=== PATIENT | female | born 1945 | race Caucasian/White ===

== ENCOUNTER 2017-12-19 12:51 | Emergency (ER) | payer MEDICARE, BC ==
[2017-12-19 13:29] LABS: #Basophils 0.1 thou/uL (0.0-0.2); #Eosinphils 0.1 thou/uL (0.0-0.7); #Lymphocytes 0.5 thou/uL (1.20-3.40); #Monocytes 0.4 thou/uL (0.11-0.59); #Neutrophils 6.4 thou/uL (1.40-6.50); %Basophils 0.9 % (0.0-1.0); %Lymphocytes 6.2 % (21.0-51.0); %Monocytes 4.9 % (0.0-10.0); Hemoglobin 9.6 g/dL (12.0-16.0); Mean Corpuscular HGB CONC 32.3 g/dL (32.0-36.0); Mean Corpuscular Hemoglobin 30.1 pg (27.0-31.0); Mean Corpuscular Volume 93.5 fl (81.0-99.0); Mean Platelet Volume 7.2 fL (7.4-10.4); Platelet Count 213 thou/uL (130-400); RBC Distribution Width 14.3 % (11.5-14.5); Red Blood Cell (RBC) Count 3.17 mill/uL (4.20-5.40); White Blood Cell (WBC) Count 7.4 thou/uL (4.8-10.8)
[2017-12-19 13:44] LABS: ALT (SGPT) 10 U/L (8-55); AST (SGOT) 19 U/L (5-34); Alkaline Phosphatase 52 U/L (40-150); Anion Gap 14 mmol/L (10-20); BUN (Urea Nitrogen) 29 mg/dL (9.8-20.1); Bilirubin, Total 0.3 mg/dL (0.2-1.2); CK (CPK) 60 U/L (29-168); CKMB 3.2 ng/mL (0-6.6); Calc. Creatinine Clearance 0 mL/min (70-130); Calcium 8.5 mg/dL (7.8-10.44); Carbon Dioxide 22 mmol/L (23-31); Chloride 109 mmol/L (98-107); Estimated GFR-MDRD 27; Globulin 3.1 g/dL (2.4-3.5); Glucose 112 mg/dL (83-110); Lipase 15 U/L (8-78); Potassium 3.8 mmol/L (3.5-5.1); Protein, Total 6.1 g/dL (6.0-8.3); Sodium 141 mmol/L (136-145); Troponin I 0.057 ng/mL (< 0.028)
--- NOTE | 2017-12-19 14:00 | RAD ---
PORTABLE CHEST 1 VIEW: Date: 12/19/17 Time: 1353 hours HISTORY: Chest pain. FINDINGS: Comparison made with exam of 09/15/16. The heart size is mildly enlarged. No focal areas of consolidation, pneumothorax, maryan pulmonary esau ma, or pleural effusions are seen. IMPRESSION: No acute process. POS: MADINA
[2017-12-19 14:55] LABS: Bilirubin Negative (Negative); Blood, Urine Trace (Negative); Clarity Cloudy (Clear); Glucose, Urine (Dipstick) Negative (Negative); Leukocyte Large (Negative); Nitrite Positive (Negative); Protein, Urine (Dipstick) 100 mg/dL (Neg-Trace); Urobilinogen 0.2 mg/dL (0.2-1.0)
[2017-12-19 14:59] LABS: Bacteria/HPF 3+ HPF (None Seen)
[2017-12-19] MEDS ORDERED: cefTRIAXone\\ROCEPHIN 1 GM VIAL ONE (15:17)
[2017-12-19] MEDS ORDERED: Sodium Chloride 0.9% 100 ML ONE (15:21)
== END 2017-12-19 16:25 | disposition left against medical advice (07) ==
LOC: SCSER 12:51
DX: N39.0 Urinary tract infection, site not specified (principal); I95.9 Hypotension, unspecified; R79.89 Other specified abnormal findings of blood chemistry; I10 Essential (primary) hypertension; M32.9 Systemic lupus erythematosus, unspecified; Z79.52 Long term (current) use of systemic steroids; Z79.82 Long term (current) use of aspirin; Z79.899 Other long term (current) drug therapy
CPT/HCPCS: 71045; 80053; 81003; 81015; 82550; 82553; 83605; 83690; 84484; 85025; 87077; 87086; 87186; 93005; 96361; 96365; J0696; J7050

== ENCOUNTER 2017-12-21 13:42 | Inpatient (IN) | payer MEDICARE, BC ==
[2017-12-21 15:24] LABS: #Basophils 0.1 thou/uL (0.0-0.2); #Lymphocytes 0.5 thou/uL (1.20-3.40); #Monocytes 0.2 thou/uL (0.11-0.59); #Neutrophils 6.3 thou/uL (1.40-6.50); %Basophils 1.1 % (0.0-1.0); %Eosinophils 0.5 % (0.0-10.0); %Lymphocytes 6.9 % (21.0-51.0); %Monocytes 3.3 % (0.0-10.0); %Neutrophils 88.1 % (42.0-75.0); Hemoglobin 9.5 g/dL (12.0-16.0); Mean Corpuscular HGB CONC 32.3 g/dL (32.0-36.0); Mean Corpuscular Hemoglobin 30.6 pg (27.0-31.0); Mean Corpuscular Volume 94.5 fl (81.0-99.0); Platelet Count 213 thou/uL (130-400); RBC Distribution Width 14.6 % (11.5-14.5); White Blood Cell (WBC) Count 7.1 thou/uL (4.8-10.8)
[2017-12-21 15:40] LABS: ALT (SGPT) 14 U/L (8-55); AST (SGOT) 25 U/L (5-34); Albumin 3.3 g/dL (3.4-4.8); Alkaline Phosphatase 50 U/L (40-150); Anion Gap 15 mmol/L (10-20); BUN (Urea Nitrogen) 26 mg/dL (9.8-20.1); Bilirubin, Total 0.2 mg/dL (0.2-1.2); Calc. Creatinine Clearance 0 mL/min (70-130); Calcium 9.4 mg/dL (7.8-10.44); Carbon Dioxide 20 mmol/L (23-31); Chloride 111 mmol/L (98-107); Estimated GFR-MDRD 29; Globulin 3.2 g/dL (2.4-3.5); Glucose 110 mg/dL (83-110); Lipase 21 U/L (8-78); Potassium 4.9 mmol/L (3.5-5.1); Protein, Total 6.5 g/dL (6.0-8.3); Sodium 141 mmol/L (136-145)
[2017-12-21 15:41] LABS: CKMB 3.3 ng/mL (0-6.6); Troponin I 0.051 ng/mL (< 0.028)
[2017-12-21 15:45] LABS: Bilirubin Negative (Negative); Blood, Urine Trace (Negative); Glucose, Urine (Dipstick) Negative (Negative); Leukocyte Moderate (Negative); Nitrite Negative (Negative); Protein, Urine (Dipstick) Trace mg/dL (Neg-Trace); Specific Gravity, Urine 1.015 (1.005-1.030); Urobilinogen 0.2 mg/dL (0.2-1.0); pH, Urine 5.5 (5.0-9.0)
[2017-12-21 15:46] LABS: Clarity Hazy (Clear)
[2017-12-21 15:47] LABS: Bacteria/HPF 2+ HPF (None Seen); RBC/HPF 0-3 HPF (0-3); WBC/HPF 21-50 HPF (0-3)
[2017-12-21] MEDS ORDERED: cefTRIAXone\\ROCEPHIN 1 GM VIAL ONE (16:04)
[2017-12-21 17:52] VITALS: BMI 27.4
[2017-12-21] MEDS ORDERED: Sodium Chloride 0.9% 1,000 ML IV SCH (18:15)
[2017-12-21] MEDS ORDERED: Nitroglycerin 0.4 MG TAB (25 Tab Bottle) PO PRN (18:33)
[2017-12-21] MEDS ORDERED: HYDROcodone/Acetaminophen 5/325 mg Tablet PO PRN (18:33)
[2017-12-21] MEDS ORDERED: hydrALAZINE 20 MG/ML VIAL SLOW IVP PRN (18:39)
[2017-12-21 18:56] LABS: Troponin I 0.052 ng/mL (< 0.028)
[2017-12-21] MEDS: Propranolol HCl 20 MG TAB PO SCH (20:31)
[2017-12-21] MEDS: traMADol HCl 50 MG TAB PO SCH (20:32)
[2017-12-21] MEDS: Docusate 100 MG CAP PO SCH (20:32)
[2017-12-21] MEDS: Carvedilol 3.125 MG TAB PO SCH (20:32)
--- NOTE | 2017-12-21 21:20 | CT ---
CT OF BRAIN PERFORMED WITHOUT CONTRAST ENHANCEMENT: History: Slurred speech. Comparison: 10-06-14 FINDINGS: Mild ventricular and sulcal prominence. There are no signs of intercerebral hemorrhage or extraaxial fluid collections. There is opacification of the left mastoid air cells. The visualized sinuses are c lear. IMPRESSION: No acute intracranial abnormalities. POS: H
[2017-12-21 22:00] LABS: Troponin I 0.039 ng/mL (< 0.028)
--- NOTE | 2017-12-21 22:58 | HP ---
DATE OF ADMISSION: 12/21/2017 CHIEF COMPLAINT: Dizziness. HISTORY OF PRESENT ILLNESS: This is a 72-year-old white female. She happened to have a dizzy spells associated with passing out feeling. This was on Friday and she went to [place] ER, where s he was noted to have urinary tract infection and because of the passing out episode. She was advised to be admitted, but the patient left the ER against medical advice. The patient started taking the Keflex since 2 days, and she has persistent passing out episodes. According to the , and also he noticed some slurred speech, this was around 12:00 noon today and he went back to the [facility] ER and the patient was evaluated, had an EKG, which was unremarkable and troponin, which was mil dly elevated at 0.051 and the patient was advised to be admitted, but she never got any CT of the hea d at that time. Her slurred speech completely resolved according to the when she was transfe rred here. She was alert and oriented, did not appear to be in any acute distress. She denies havin g any fever, any burning on passing urine or any frequent urinations. She has known history of lupus and she is on steroids and she sees Dr. Frias. She is pretty much a lert and oriented, did not appear in any acute distress at this time. She denies having any chest pa in. No nausea, no vomiting, no diarrhea, no constipation. PAST MEDICAL HISTORY: 1. History of hypertension. 2. History of lupus. PAST SURGICAL HISTORY: 1. History of right leg surgery. 2. History of bilateral cataract surgery. PSYCHIATRIC HISTORY: No history of previous psychiatric history. SOCIAL HISTORY: The patient lives at home along with her . No history of smoking. No histor y of illicit drug use. FAMILY HISTORY: The patient's father had coronary artery disease and he at the age of 60 with C OPD according to her. ALLERGIES: No known drug allergies. HOME MEDICATIONS: 1. Aspirin. 2. Nuelin. 3. Lunesta, she takes 5 mg tablet at bedtime. The maximum dose is 2 mg. 4. Lasix 20 mg daily. 5. Losartan 50 mg p.o. daily. 6. Prednisolone 10 mg p.o. daily. 7. Propranolol 20 mg p.o. b.i.d. 8. Tramadol 50 mg p.o. b.i.d. REVIEW OF SYSTEMS: All 12 systems are reviewed with the patient thoroughly and found to be negative at this time except the ones described in the HPI. The following complete review of systems was negative, unless otherwise mentioned in the HPI or below : Constitutional: Weight loss or gain, sense of well-being, ability to conduct usual activities, exerc ise tolerance. Skin/Breast: Rash, itching, changes in hair growth or loss, nail changes, breast lumps, tenderness, swelling, nipple discharge. Eyes: Vision, double vision, tearing, blind spots, pain. ENT/Mouth: Headaches (location, time of onset, duration, precipitating factors), vertigo, lightheade dness, injury. Vision, double vision, tearing, blind spots, pain, nose bleeding, colds, obstruction, discharge, dental difficulties, gingival bleeding, dentures, neck stiffness, pain, tenderness, masses in thyroid or other areas. Cardiovascular: Precordial pain, substernal distress, palpitations, syncope, dyspnea on exertion, or thopnea, nocturnal paroxysmal dyspnea, edema, cyanosis, hypertension, heart murmurs, varicosities, ph lebitis, claudication. Respiratory: Pain, shortness of breath, wheezing, stridor, cough, hemoptysis, fever or night sweats. Gastrointestinal: Poor appetite, dysphagia, indigestion, abdominal pain, heartburn, eructation, naus ea, vomiting, hematemesis, jaundice, constipation, or diarrhea, abnormal stools (claudia-colored, tarry, bloody, greasy, foul smelling), flatulence, hemorrhoids, recent changes in bowel habits. Genitourinary: Urgency, frequency, dysuria, nocturia, hematuria, polyuria, oliguria, unusual (or carlton nge in) color of urine, stones, hesitancy, change in size of stream, dribbling, acute retention or in continence, libido, potency. Musculoskeletal: Pain, swelling, redness or heat of muscles or joints, limitation, of motion, muscular weakness, atrophy, cramps. Neurologic/Psychiatric: Convulsions, paralyses, tremor, incoordination, parasthesias, difficulties w ith memory of speech, sensory or motor disturbances, or muscular coordination (ataxia, tremor), emoti onal problems, anxiety, depression, previous psychiatric care, unusual perceptions, hallucinations. Allergy/Immunologic: Skin rash, anemia, bleeding tendency, polydipsia, polyuria, intolerance to heat or cold. PHYSICAL EXAMINATION: VITAL SIGNS: Blood pressures are 206/84, heart rate is 52, respiratory rate is 20, saturation 98%. GENERAL: The patient is moderately built and moderately nourished. She does not appear to be in acu te distress at this time. She is alert, oriented x3. HEENT: Atraumatic, normocephalic. PERRLA. Extraocular muscles were intact. Oral mucosa is pink an d moist. CARDIOVASCULAR: S1, S2 normal. No murmurs, rubs or gallops. LUNGS: Bilateral air entry was equal. No wheezing, no crackles. ABDOMEN: Soft, nontender, no guarding, no rebound tenderness. Bowel sounds are normal. MUSCULOSKELETAL: No calf tenderness. No pedal edema. No joint redness, no joint swelling. SKIN: No cyanosis, no erythema, no rash, no pallor. NEUROLOGIC: Cranial examination II-XII intact. No focal deficits were noted. ASSESSMENT: 1. Evy-BY-bmrpssf elevation myocardial infarction. 2. Likely transient ischemic attack. 3. Uncontrolled hypertension. 4. 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 5. Acute kidney injury. 6. Acute urinary tract infection. 7. Anemia of chronic disease. PLAN: 1. The plan is to admit this patient. She would need at least 2 midnights stay because of the multi ple comorbidities. At this time, we will start the patient on aspirin, beta abelardo, and statin and check the lipid profile in the morning. We will do a 2-D echo to look for any evidence of wall motio n abnormalities and we will consult Cardiology if needed. The patient may need a stress test if the troponin trending down. 2. The patient has evidence of slurred speech, which was not evaluated in the ER at [place]. We will do a CT of the head at this time and we will do ultrasound of the carotids to look for evid ence of stroke. We will do neuro checks every 4 hours and also consulted Dr. Frias. 3. If the patient has a history of lupus and with slurred speech. There could also be a possibly ankur pus cerebritis, so we will continue the patient on the steroids and we will follow with the Neurology recommendations. 4. The patient has poorly controlled blood pressure, there are in 200s when she came in. She was as ymptomatic completely, but elevated troponins has the sign of end organ damage as possibly would kiran tify for a malignant hypertension and so we will closely monitor and start the patient on hydralazine 20 mg q.6 hours and slowly reduce the blood pressures. We will continue the patient's home medicati ons. We will avoid any fluids at this time because of the elevated blood pressures. The patient has mild renal dysfunction likely from lupus, but we will closely monitor at this time. 5. As the patient has the history of recent UTI and she is on Keflex. We will start the patient on Rocephin 1 gram daily. 6. Deep venous thrombosis prophylaxis, Lovenox. Dictating Physician, Andi Pichardo, has spent 70 minutes with this patient.
[2017-12-22] MEDS: Acetaminophen 325 MG TAB PO PRN ×2 (00:01→05:42)
[2017-12-22 05:29] LABS: #Eosinphils 0.1 thou/uL (0.0-0.7); #Monocytes 0.4 thou/uL (0.11-0.59); #Neutrophils 4.6 thou/uL (1.40-6.50); %Basophils 0.3 % (0.0-1.0); %Eosinophils 1.2 % (0.0-10.0); %Lymphocytes 16.2 % (21.0-51.0); %Monocytes 6.3 % (0.0-10.0); %Neutrophils 76.1 % (42.0-75.0); Hemoglobin 9.7 g/dL (12.0-16.0); Mean Corpuscular HGB CONC 32.3 g/dL (32.0-36.0); Mean Corpuscular Hemoglobin 31.6 pg (27.0-31.0); Mean Platelet Volume 7.3 fL (7.4-10.4); Platelet Count 233 thou/uL (130-400); RBC Distribution Width 14.1 % (11.5-14.5); Red Blood Cell (RBC) Count 3.06 mill/uL (4.20-5.40)
[2017-12-22 05:41] LABS: Anion Gap 14 mmol/L (10-20); BUN (Urea Nitrogen) 28 mg/dL (9.8-20.1); Calc. Creatinine Clearance 37 mL/min (70-130); Calcium 8.9 mg/dL (7.8-10.44); Carbon Dioxide 18 mmol/L (23-31); Cardiac Risk 4.9 (Less than 4.5); Chloride 114 mmol/L (98-107); Cholesterol 186 mg/dl (< 200 Desired); Estimated GFR-MDRD 36; Glucose 85 mg/dL (83-110); HDL Cholesterol 38 mg/dL (>60 Neg Risk); LDL Cholesterol, Calculated 114 mg/dL; Potassium 4.5 mmol/L (3.5-5.1); Sodium 141 mmol/L (136-145); Triglycerides 169 mg/dL (Less than 150)
[2017-12-22] MEDS: Calcium Carbonate 600 MG TAB PO SCH (09:10)
[2017-12-22] MEDS: Aspirin 325 MG TAB PO SCH (09:10)
[2017-12-22] MEDS: Carvedilol 3.125 MG TAB PO SCH ×2 (09:10→18:29)
[2017-12-22] MEDS: Losartan 25 MG TAB PO SCH (09:11)
[2017-12-22] MEDS: Propranolol HCl 20 MG TAB PO SCH ×2 (09:11→18:29)
[2017-12-22] MEDS: Docusate 100 MG CAP PO SCH ×2 (09:11→18:30)
[2017-12-22] MEDS: traMADol HCl 50 MG TAB PO SCH ×2 (09:11→20:37)
[2017-12-22] MEDS: predniSONE 20 MG TAB PO SCH (09:13)
[2017-12-22] MEDS: Enoxaparin Sodium 40 MG/0.4 ML SYRINGE SC SCH (09:14)
--- NOTE | 2017-12-22 09:49 | ULT ---
ULTRASOUND WITH DOPPLER CAROTID: Date: 12/22/17 HISTORY: 72-year-old female with dizziness. TECHNIQUE: Schultz scale, color flow, and spectral analysis of major arteries of the neck. FINDINGS: The right internal carotid artery is tortuous. A portion of the proximal right internal carotid arter y is posteriorly located such that a segment of it is poorly visualized. No definite plaque is identi fied at the origin of the right internal carotid at the carotid bulb. There is mild plaque visualized in the contralateral left carotid bulb. The vertebral artery flow is antegrade bilaterally. JESSICA: 150 cm/s peak systolic, 25 cm/s end diastolic LICA: 140 cm/s peak systolic, 30 cm/s end diastolic Right ICA/CCA Ratio: 2.2 Left ICA/CCA Ratio: 1.9 The peak systolic velocities in both internal carotid arteries are consistent with moderate stenosis, in the 50-69% range. However, the end diastolic velocities are consistent with mild, less than 50% stenosis, in the bilate ral internal carotid arteries. IMPRESSION: 1. Less than 70% stenosis in the bilateral internal carotid arteries. Inconsistency between the pea k systolic and end diastolic velocity information vis a vis degree of stenosis. It is more likely th at the degree of stenosis is less than 50%. Unless contraindicated, a CT Angiogram of the neck with contrast would be useful and more definitive. 2. Mild atherosclerotic plaque visualized in the proximal left internal carotid artery. POS: OFF
--- NOTE | 2017-12-22 09:53 | PDOC.PN ---
- Subjective Encounter Start Date: 12/22/17 Encounter Start Time: 09:50 Subjective: nsg notes rev, arun ovn, feels better denies any further dizziness, no -: burning with urination, no lightheadedness - Objective Vital Signs & Weight: Vital Signs (12 hours) Temp Pulse Resp BP Pulse Ox 12/22/17 08:00 97.9 F 80 18 190/84 H 97 12/22/17 04:00 98.2 F 83 18 135/61 100 12/21/17 23:10 98.2 F 80 18 100 12/21/17 22:28 98.2 F 80 18 155/89 H 100 Weight Weight 144 lb 11.2 oz I&O: 12/21/17 12/22/17 12/23/17 06:59 06:59 06:59 Intake Total 720 Output Total 300 Balance 420 Result Diagrams: 12/22/17 05:10 12/22/17 05:10 Phys Exam - Physical Examination Constitutional: NAD HEENT: PERRLA, moist MMs, sclera anicteric, oral pharynx no lesions Neck: no nodes Respiratory: no wheezing, no rales, no rhonchi, clear to auscultation bilateral Cardiovascular: RRR, no significant murmur, no rub Gastrointestinal: soft, non-tender, no distention, positive bowel sounds Musculoskeletal: pulses present trace b/l LE edema pt states @ baseline Neurological: moves all 4 limbs Psychiatric: normal affect, A&O x 3 Dx/Plan - Plan * Dizziness * resolved, question if 2/2 volume depletion from UTI * continue to monitor, check orthostatic VS * monitor I/O UTI * empiric abx * pending UCx * symptomatically improved BILL * appears improved Cr * monitor UOP, suspect pre-renal picture hx lupus * with initial concern for lupus cerebritis * apprec neurology c/s * will follow with recs * CT head unremarkable - results reviewed with pt diet: as lennie activity: OOB as lennie dvt ppx Review of Systems - Medications/Allergies Allergies/Adverse Reactions: Allergies Allergy/AdvReac Type Severity Reaction Status Date / Time Sulfa (Sulfonamide Allergy Severe Verified 12/21/17 17:51 Antibiotics) promethazine Allergy Mild Verified 12/21/17 17:51 Medications: Current Medications Acetaminophen (Tylenol) 650 mg PO Q4H PRN PRN Reason: Headache/Fever or Pain Last Admin: 12/22/17 05:42 Dose: 650 mg Hydrocodone Bitart/Acetaminophen ([place] 5/325) 1 tab PO Q4H PRN PRN Reason: Moderate Pain (4-6) Aspirin (Aspirin) 325 mg PO DAILY [facility] Calcium Carbonate (Caltrate) 1,200 mg PO DAILY [facility] Last Admin: 12/22/17 09:10 Dose: 1,200 mg Carvedilol (Coreg) 3.125 mg PO BID [facility] Last Admin: 12/22/17 09:10 Dose: 3.125 mg Cholecalciferol (Vitamin D3) 2,000 units PO DAILY [facility] Last Admin: 12/22/17 09:11 Dose: 2,000 units Docusate Sodium (Colace) 100 mg PO BID [facility] Last Admin: 12/22/17 09:11 Dose: 100 mg Enoxaparin Sodium (Lovenox) 40 mg SC 0900 [facility] Last Admin: 12/22/17 09:14 Dose: 40 mg Hydralazine HCl (Apresoline) 20 mg SLOW IVP Q6H PRN PRN Reason: systolic >160 Ceftriaxone Sodium 1 gm/ (Syringe 0.4 ml/ Sterile Water) 10 mls @ 120 mls/hr SLOW IVP 1600 [facility] Losartan Potassium (Cozaar) 50 mg PO DAILY [facility] Last Admin: 12/22/17 09:11 Dose: 50 mg Nitroglycerin (Nitrostat) 0.4 mg PO Q5MIN PRN PRN Reason: Chest Pain Prednisone (Prednisone) 10 mg PO DAILY [facility] Last Admin: 12/22/17 09:13 Dose: 10 mg Propranolol HCl (Inderal) 20 mg PO BID [facility] Last Admin: 12/22/17 09:11 Dose: 20 mg Tramadol HCl (Ultram) 50 mg PO BID [facility] Last Admin: 12/22/17 09:11 Dose: 50 mg
[2017-12-22] MEDS ORDERED: cefTRIAXone\\ROCEPHIN 1 GM, Syringe 0.4 ML in Sterile Water 9.6 ML SLOW IVP SCH (16:00)
[2017-12-22] MEDS ORDERED: cefTRIAXone\\ROCEPHIN 1 GM in Sodium Chloride 0.9% 100 ML IVPB SCH (16:00)
[2017-12-22] MEDS ORDERED: Sodium Chloride 0.9% 10 ML ONE (20:23)
[2017-12-22] MEDS ORDERED: Melatonin 3 MG TAB PO PRN (21:34)
[2017-12-22] MEDS ORDERED: cloNIDine 0.1 MG TAB PO PRN (21:34)
[2017-12-23] MEDS: Enoxaparin Sodium 40 MG/0.4 ML SYRINGE SC SCH (09:11)
[2017-12-23] MEDS: Docusate 100 MG CAP PO SCH (09:11)
[2017-12-23] MEDS: Aspirin 325 MG TAB PO SCH (09:11)
[2017-12-23] MEDS: Propranolol HCl 20 MG TAB PO SCH (09:11)
[2017-12-23] MEDS: Losartan 25 MG TAB PO SCH (09:11)
[2017-12-23] MEDS: predniSONE 20 MG TAB PO SCH (09:11)
[2017-12-23] MEDS: Calcium Carbonate 600 MG TAB PO SCH (09:13)
[2017-12-23] MEDS: traMADol HCl 50 MG TAB PO SCH (09:14)
[2017-12-23] MEDS: Carvedilol 3.125 MG TAB PO SCH (09:14)
--- NOTE | 2017-12-23 10:58 | PQF ---
CLINICAL DOCUMENTATION IMPROVEMENT CLARIFICATION FORM: ICD-10 Updated PLEASE DO AN ADDENDUM TO THE PROGRESS NOTE WITH ANY DOCUMENTATION UPDATES OR ADDITIONS AND CARRY THROUGH TO DC SUMMARY. THANK YOU. DATE: 12/23 ATTN: SABRINA MOSS Please exercise your independent, professional judgment in responding to the clarification form. Clinical indicators are provided on the bottom of this form for your review. Please check appropriate box(s): [ ] NSTEMI [ x ] AMI Type II [ ] Demand Ischemia DUE TO (if applicable): [ ] Other [ ] Other diagnosis [ ] Unable to determine CLINICAL INDICATORS - SIGNS / SYMPTOMS / LABS TROP: 0.051, 0.052, 0.039 (12/21) ER PHYSICIAN DIAGNOSES DOCUMENTATION 12/21: UTI, ELEVATED TROPONIN ATTENDING PHYSICIAN H&P DOCUMENTATION 12/21: ASSESSMENT: 1) NSTEMI RISKS: UNCONTROLLED HYPERTENSION BILL LUPUS TREATMENTS: ECHO (EF 55-60%, MILD LVH) TELEMETRY MONITORING PRN SL NITROSTAT THANK YOU! Komal (This form is maintained as a part of the permanent medical record) 2014 [employer]. All Rights Reserved Komal Uribe RN, BSN [email or web address] Office: [phone] [facility]
[2017-12-23] MEDS ORDERED: Ciprofloxacin 500 MG TAB PO SCH ×2 (14:45→16:30)
[2017-12-23] MEDS ORDERED: cloNIDine 0.2 MG TAB PO SCH (15:33)
[2017-12-23 19:10] VITALS: BP 132/60; TEMP 98.6
--- NOTE | 2017-12-24 15:28 | DIS ---
DATE OF ADMISSION: 12/21/2017 DATE OF DISCHARGE: 12/23/2017 DISCHARGE DIAGNOSES: 1. Urinary tract infection, resolved. 2. Acute kidney injury, likely secondary to prerenal etiology, resolved. 3. Dizziness, resolved. 4. History of lupus, stable. BRIEF SUMMARY OF HOSPITAL COURSE: This is a 72-year-old female with a history of hypertension, lupus who presented with a chief complaint of dizziness. Please see the original history and physical for full details surrounding her admission. On presentation, there was concern for neurological etiology of her presentation with the possibility of a lupus cerebritis. Neurology was consulted. She was also noted to have some poorly controlled hypertensive episodes with systolic blood pressure in the 200s and subsequent evaluation in the emergency department revealed both acute kidney injury and urinary tract infection. At the time of discharge, the patient feels symptomatically dramatically improved. She has had no further episodes of dizziness. There is question of whether or not her presentation was related to the possibility of volume depletion from her urinary tract infection. She has been on empiric antibiotics and will continue on her course at the time of discharge. Her acute kidney injury on admission appears to be dramatically improved post hydration and she has improved creatinine. Given the improvement secondary to fluid resuscitation, I suspect a prerenal etiology. While there was initial concern for lupus cerebritis, at this point in time, I feel it seems to be less likely. The patient will continue to follow closely with Neurology on an outpatient basis as she already has an established neurologist. Remainder of her chronic medical issues were stable at the time of discharge including her noted hypertension on admission, which was resolved with resumption of the patient's home regimen. MEDICATION RECONCILIATION: Please see the EMR for full details. Notably, the patient will be on p.r.n. clonidine as needed for hypertensive episodes. Carvedilol has been added as well. DISCHARGE INSTRUCTIONS: The patient has been asked to closely follow her home antihypertensive regimen as outlined above and continue taking serial blood pressure measurements at home. She has been asked to follow up closely with her primary care provider along with her outpatient neurologist as well. The patient and her at bedside are able to complete teach back in regards to followup instructions and concern of her blood pressure management at home. DISCHARGE CONDITION: VITAL SIGNS: At the time of discharge, the patient's vital signs are stable. Temperature of 98.6, heart rate of 80, blood pressure 132/60, respirations 20, satting 95% on room air. GENERAL: The patient is awake, alert, oriented x3, in no acute distress. HEENT: Equal, ocular motions are intact. Moist mucous membranes. Pupils equal and reactive. CARDIOVASCULAR: S1, S2. Pulses 2+ in bilateral upper extremities. No pitting pedal edema. RESPIRATORY: Grossly clear to auscultation. No wheezes, rales, or rhonchi. ABDOMEN: Soft, nontender to palpation. Positive bowel sounds. SIGNIFICANT LABS AND IMAGIN12/22/2017, WBC 6, hemoglobin 9.7, hematocrit 38 , platelets 233. Sodium 141, potassium 4.5, chloride 114, bicarbonate 18, BUN 28, creatinine 1.45, glucose 85. Serial troponins were 0.051, 0.052, and 0.039. Triglycerides were slightly elevated at 169, cholesterol 186, LDL 114, HDL 38. UA, significant for trace blood, moderate leukocyte esterase, 21-50 wbc 's, 2+ urine bacteria. Clean catch urine culture obtained from 12/21/2017 has been no growth at 48 hours. 12/21/[address] impression: No acute intracranial abnormalities. 2017 at 1945, TTE: LVEF estimated at 55%-60%, mild concentric left ventricular hypertrophy, diastolic function cannot be assessed, moderate mitral regurgitation is present, aortic valve is sclerotic with normal excursion, moderate tricuspid regurgitation, moderately elevated pulmonary artery pressure. 12/22/2017 carotid Doppler study impression: Less than 70% stenosis in the bilateral internal carotid arteries. Inconsistency between the peak systolic and end-diastolic velocity information vis-a-vis degree of stenosis. It is more likely that the degree of stenosis is less than 50%. Unless contraindicated, a CT angiogram of the neck with contrast would be useful more definitive. Mild atherosclerotic plaque visualized in the proximal left internal carotid artery. Thank you for asking me to care for the patient. For questions or concerns, please contact me at [facility]. YING
== END 2017-12-23 17:15 | disposition home or self-care (01) | DRG 281 ==
LOC: SCSER 13:42 → 2SW 17:35 → OBSVTOIN 19:45 → 2NO 22:22
PROVIDERS: ADMIT Family Medicine; ATTEND Family Medicine
DX: I21.A1 Myocardial infarction type 2 (principal); N17.9 Acute kidney failure, unspecified; I95.9 Hypotension, unspecified; M32.9 Systemic lupus erythematosus, unspecified; I08.1 Rheumatic disorders of both mitral and tricuspid valves; I45.10 Unspecified right bundle-branch block; D63.8 Anemia in other chronic diseases classified elsewhere; N39.0 Urinary tract infection, site not specified; Z79.52 Long term (current) use of systemic steroids; I10 Essential (primary) hypertension; Z79.82 Long term (current) use of aspirin; Z96.651 Presence of right artificial knee joint; I44.0 Atrioventricular block, first degree; R47.81 Slurred speech; R79.89 Other specified abnormal findings of blood chemistry; Z79.899 Other long term (current) drug therapy
CPT/HCPCS: 36415; 70450; 71045; 80048; 80053; 80061; 81003; 81015; 82550; 82553; 83605; 83690; 84484; 85025; 87040; 87077; 87086; 87186; 87804; 93005; 93306; 93880; 96361; 96365; A4216; G8978-GP-CJ; G8979-GP-CJ; G8980-GP-CJ; J0360; J0696; J1650; J7050; J7506

== ENCOUNTER 2018-03-05 12:51 | Emergency (ER) | payer MEDICARE, BC ==
--- NOTE | 2018-03-05 13:20 | RAD ---
PA AND LATERAL CHEST: HISTORY: Chest pain. COMPARISON: 12/19/2017 FINDINGS: The heart size is borderline. The aorta is tortuous. There is mild prominence of the pulmonary vasc ularity. No lobar consolidation or pleural effusions are identified. POS: C
== END 2018-03-05 13:39 | disposition home or self-care (01) ==
LOC: SCSER 12:51
DX: J18.9 Pneumonia, unspecified organism (principal); I10 Essential (primary) hypertension; Z79.899 Other long term (current) drug therapy; Z79.82 Long term (current) use of aspirin
CPT/HCPCS: 71046

== ENCOUNTER 2018-04-25 19:01 | Inpatient (IN) | payer MEDICARE, BC ==
[2018-04-25] MEDS ORDERED: Ziprasidone 20 MG VIAL ONE ×2 (19:35→19:41)
[2018-04-25] MEDS ORDERED: Water For Inject, Bacteriostat 30 ML ONE (19:36)
[2018-04-25] MEDS ORDERED: Water For Injection,Sterile 20 ML ONE (19:41)
--- NOTE | 2018-04-25 20:02 | RAD ---
PORTABLE UPRIGHT FRONTAL CHEST RADIOGRAPH 04/25/18 COMPARISON: 12/19/17 HISTORY: Altered mental status. FINDINGS: There is pulmonary vascular congestion with interstitial opacity in the perihilar regions and both ankur ng bases. Blunting of the costophrenic angles and obscuration of bilateral hemidiaphragms suggest bib asilar consolidation/collapse and/or bilateral pleural effusion. IMPRESSION: Pulmonary vascular congestion with interstitial prominence in the perihilar regions and both lung bas es as well as probable small pleural effusions. Findings suggest pulmonary edema in the proper clinic al setting. Followup imaging following treatment is advised. POS: MILI
--- NOTE | 2018-04-25 20:13 | CT ---
HEAD CT WITHOUT CONTRAST 04/25/18 COMPARISON: 12/21/17 HISTORY: Altered mental status, hypertension, bradycardia, lethargy, atrial fibrillation. TECHNIQUE: Serial axial CT imaging obtained at 5 mm intervals from vertex through skull base without contrast. FINDINGS: There is persistent nonspecific opacification of the left mastoid air cells. There is no displaced ca lvarial fracture. No intracranial hemorrhage, midline shift, mass effect or ventricular enlargement. IMPRESSION: No acute findings. Persistent opacification of the left mastoid air cells, evidence of a nonspecific left mastoid effusion. POS: [facility]
[2018-04-25] MEDS ORDERED: Lorazepam 2 MG/ML VIAL ONE (20:36)
[2018-04-25 21:50] LABS: PTT 23.6 SEC (22.9-36.1)
[2018-04-25 21:54] LABS: INR-International Normal Ratio 1.2; Prothrombin Time 15.2 SEC (12.0-14.7)
[2018-04-25 22:02] LABS: Band 7 % (5-11); Hemoglobin 9.9 g/dL (12.0-16.0); Lymphocytes 5 % (21-51); MDiff Complete? YES; Mean Corpuscular HGB CONC 31.9 g/dL (32.0-36.0); Mean Corpuscular Hemoglobin 31.7 pg (27.0-31.0); Mean Corpuscular Volume 99.5 fl (81.0-99.0); Mean Platelet Volume 10.3 fL (7.4-10.4); Metamyelocyte 1 % (0-0); Monocytes 7 % (0-10); Neutrophil 80 % (42-75); Nucleated RBC 5 % (0); PLT Morphology Comment Appears Decreased; Platelet Count 99 thou/uL (130-400); Polychromasia SLIGHT = 2-3 cells (100X) (0-2/hpf); RBC Distribution Width 17.8 % (11.5-14.5); Red Blood Cell (RBC) Count 3.11 mill/uL (4.20-5.40); Stomatocytes SLIGHT = 2-5 cells (100X) (0-1/hpf)
[2018-04-25 22:05] LABS: ALT (SGPT) 142 U/L (8-55); AST (SGOT) 66 U/L (5-34); Albumin 2.9 g/dL (3.4-4.8); Alkaline Phosphatase 368 U/L (40-150); Anion Gap 18 mmol/L (10-20); BUN (Urea Nitrogen) 29 mg/dL (9.8-20.1); Bilirubin, Total 1.3 mg/dL (0.2-1.2); CK (CPK) 82 U/L (29-168); Calc. Creatinine Clearance 0 mL/min (70-130); Calcium 8.6 mg/dL (7.8-10.44); Carbon Dioxide 25 mmol/L (23-31); Chloride 104 mmol/L (98-107); Estimated GFR-MDRD 49; Globulin 2.9 g/dL (2.4-3.5); Glucose 99 mg/dL (83-110); Lipase 31 U/L (8-78); Magnesium 1.9 mg/dL (1.6-2.6); Potassium 4.1 mmol/L (3.5-5.1); Protein, Total 5.8 g/dL (6.0-8.3); Sodium 143 mmol/L (136-145)
[2018-04-25 22:07] LABS: CKMB 1.9 ng/mL (0-6.6)
[2018-04-25 22:21] LABS: Troponin I 0.434 ng/mL (< 0.028)
[2018-04-25] MEDS ORDERED: Nitroglycerin 2% Ointment 1 INCH/1 GM Packet ONE (23:23)
[2018-04-25] MEDS ORDERED: Enoxaparin Sodium 80 MG/0.8 ML SYRINGE ONE (23:23)
[2018-04-25] MEDS ORDERED: Furosemide 40 MG/4 ML VIAL ONE (23:23)
[2018-04-26 01:07] LABS: Troponin I 0.452 ng/mL (< 0.028)
--- NOTE | 2018-04-26 01:17 | HP ---
PRIMARY CARE PHYSICIAN: Dr. Ant Tobias. REASON FOR ADMISSION: Acute on chronic congestive heart failure exacerbation, elevated cardiac enzym e, altered mental status. HISTORY OF PRESENT ILLNESS: A 72-year-old female who was sent from jail because patient was not acting properly. She was having increasing lower extremity edema. She was feeling weak and shor t of breath. This patient is not able to provide any history and family member present at bedside wh o reports that she was recently admitted to [facility] 2 times. First time, she had al tered mental status and she was diagnosed with urinary tract infection and she was given antibiotic t herapy and subsequently she was discharged back to home. Patient was not doing well and subsequently she required another admission at [facility]. During that admission, the patient had a cholecy stectomy. Postoperatively, the patient was lethargic and weak and that is why she required admission to [facility] for rehabilitation. At the rehabilitation, patient was more lethargic than usual and that is why they sent her to emergen cy room for evaluation. Patient was hypertensive and bradycardic at jail. The patient has underlying senile dementia and about a month ago, she had four and that is why she patel d fracture of the vertebrae. At that time, the patient was hypertensive. The patient did not have a ny fever or chills. She did not have any nausea, vomiting, diarrhea, UTI symptoms, but she was havin g vague discomfort all over her body. Today in the emergency room, patient was evaluated and the patient's chest x-ray showed pulmonary vas cular congestion. CT brain was negative for any acute intracranial process. Routine labs showed chet kocytosis, lactic acidosis, abnormal LFT, elevated BNP, and elevated troponin. EMERGENCY ROOM COURSE: Patient is given hydralazine 20 mg, nitropatch, Lasix 80 mg, aspirin 324 mg, Lovenox 1 mg per kg, Geodon 20 mg. PAST MEDICAL HISTORY: Hypertension, history of lupus, moderate mitral regurgitation, moderate tricus pid regurgitation, pulmonary hypertension, paroxysmal atrial fibrillation, CKD stage 3, adrenal insuf ficiency, history of cholecystitis. PAST SURGICAL HISTORY: Right ankle surgery, total right knee replacement, bilateral cataract surgery , recent cholecystectomy. PAST PSYCHIATRIC HISTORY: Anxiety and depression. SOCIAL HISTORY: The patient was living at home initially and she was ambulatory with a walker, but c chnaning patient is from jail with the [facility]. No history of tobacco, alcohol, or illicit drug abuse. She is . Her is present at bedside in the emergency room. FAMILY HISTORY: No strong family history of premature coronary artery disease, stroke, or cancer. ALLERGIES: HYDRALAZINE, PROMETHAZINE, SULFA DRUGS. CURRENT HOME MEDICATIONS: Amlodipine 5 mg p.o. daily, tramadol 50 mg q.6. hourly p.r.n., losartan 25 mg p.o. daily, calcium carbonate 600 mg p.o. daily, prednisone 10 mg p.o. daily, Seroquel 25 mg p.o. at bedtime, melatonin 3 mg p.o. at bedtime, Lasix 20 mg twice daily. REVIEW OF SYSTEMS: All review of systems tried to review with the patient, but unable to review inder use patient is altered and unable to concentrate on review of systems. PHYSICAL EXAMINATION: VITAL SIGNS: On arrival, blood pressure 187/106, pulse 94 and irregular, respiratory rate 20, temper ature 97.9, saturation 94% on room air, weight 81.7 kilograms. GENERAL: Patient is currently altered, hypertensive, no obvious acute distress. HEAD: Normocephalic, atraumatic. EYES: Pupils round, reactive to light. Extraocular muscle intact. ENT: Oropharynx within normal limits. Moist mucous membrane. No oral lesion, no pharyngeal erythem a, no exudate. NECK: Supple. No JVD, no thyromegaly. LUNGS: Bilateral coarse breath sounds, basilar rales noted, systolic murmur noted at parasternal as well as at apex. CARDIAC: S1, S2 irregular. ABDOMEN: Soft, bowel sounds present. No Valadez sign. No peritoneal sign. No guarding, no rigidity , no rebound. BACK: Unremarkable. No CVA tenderness. EXTREMITIES: Upper extremity: Passive movement of all joints are normal. Lower extremities: Bilat eral lower extremity pitting edema noted. SKIN: No skin rash. HEMATOLOGIC: No lymphadenopathy. PSYCHIATRIC: Normal affect. NEUROLOGIC: Grossly nonfocal examination. She moves all 4 limbs, but detailed neurological examinat ion is not possible because patient is not cooperative. SIGNIFICANT DIAGNOSTIC AND LABORATORY DATA: EKG showing atrial fibrillation with controlled ventricu lar response, incomplete right bundle branch block pattern, nonspecific ST-T changes in anterior and inferior leads. CT brain based on my review, no acute intracranial process other than chronic mastoi d air cell opacification. Chest x-ray showing pulmonary vascular congestion. CBC: WBC 13.0, hemogl obin 9.9, platelet 99 with bandemia. INR 1.2. BMP: Sodium 143, potassium 4.1, chloride 104, carbon dioxide 25, BUN 29, creatinine 1.09, glucose 99, calcium 8.6. Lactic acid 2.3. LFT: AST 66, ALT 1 42, alkaline phosphatase 368, albumin 2.9, lipase 31. CK 82, CK-MB 1.9, troponin I 0.434, BNP 11,329 . IMPRESSION: 1. Acute metabolic encephalopathy. 2. Sepsis, suspected source of infection unknown, but needs to be excluded intra-abdominal process. 3. Acute on chronic diastolic congestive heart failure. 4. Abnormal liver function tests with a recent history of cholecystitis, status post cholecystectomy . 5. Significantly elevated troponin due to demand ischemia. 6. Lactic acidosis. 7. Anemia with macrocytosis. 8. Acute thrombocytopenia. 9. Atrial fibrillation. 10. History of lupus. 11. Physical deconditioning. 12. Hypertensive urgency. PLAN: Empiric antibiotic therapy with cefepime and vancomycin. CT of the abdomen and pelvis to rule out intra-abdominal process. Repeat LFT, serial cardiac enzymes. Cardiology consultation for abnor mal troponin. Lasix 40 mg IV b.i.d. for elevated BNP and acute on chronic diastolic heart failure. No heparin product because of low platelet count. The patient is already given Lovenox 1 mg per kg i n the emergency room. Repeat lactic acid tomorrow. Monitor labs. Deep venous thrombosis prophylaxi s, SCD boots for now. No Lovenox because of low platelet count. Gastrointestinal prophylaxis, Kori nix 40 mg IV daily. CODE STATUS: The patient is FULL CODE. Patient's is surrogate decision maker. Disposition plan based on clinical course. We are expecting patient's stay in hospital more than 2 m idnights. Plan of care discussed with the patient and family member at bedside.
[2018-04-26] MEDS ORDERED: Ondansetron ODT 4 MG TAB SL PRN (02:13)
[2018-04-26] MEDS ORDERED: Ondansetron HCl/PF 4 MG/2 ML Vial IVP PRN ×2 (02:13→02:21)
[2018-04-26] MEDS ORDERED: Milk Of Magnesia 30 ML UDCUP PO PRN (02:21)
[2018-04-26] MEDS ORDERED: Ondansetron ODT 4 MG TAB PO PRN (02:21)
[2018-04-26] MEDS ORDERED: Loperamide HCl 2 MG CAP PO PRN (02:21)
[2018-04-26] MEDS ORDERED: Acetaminophen 325 MG TAB PO PRN (02:21)
[2018-04-26] MEDS ORDERED: Mag-Al 1200 mg/1200 mg/30 ML UDCUP PO PRN (02:21)
[2018-04-26] MEDS ORDERED: Labetalol HCl 100 MG/20 ML VIAL SLOW IVP PRN (02:21)
[2018-04-26] MEDS ORDERED: Senokot 8.6 MG TAB PO PRN (02:21)
[2018-04-26] MEDS ORDERED: Cefepime 2 GM in Sodium Chloride 0.9% 100 ML IVPB SCH (03:00)
[2018-04-26] MEDS ORDERED: Vancomycin HCl 1.75 GM in Sodium Chloride 0.9% 500 ML IVPB SCH (04:00)
[2018-04-26 05:36] LABS: #Eosinphils 0.1 thou/uL (0.0-0.7); #Lymphocytes 1.5 thou/uL (1.20-3.40); #Monocytes 0.9 thou/uL (0.11-0.59); #Neutrophils 13.3 thou/uL (1.40-6.50); %Basophils 0.1 % (0.0-1.0); %Eosinophils 0.5 % (0.0-10.0); %Lymphocytes 9.6 % (21.0-51.0); %Monocytes 5.7 % (0.0-10.0); Hemoglobin 10.4 g/dL (12.0-16.0); Mean Corpuscular Hemoglobin 31.8 pg (27.0-31.0); Mean Corpuscular Volume 99.4 fl (81.0-99.0); Mean Platelet Volume 9.7 fL (7.4-10.4); Platelet Count 123 thou/uL (130-400); Red Blood Cell (RBC) Count 3.29 mill/uL (4.20-5.40); White Blood Cell (WBC) Count 15.8 thou/uL (4.8-10.8)
[2018-04-26 05:48] LABS: ALT (SGPT) 127 U/L (8-55); AST (SGOT) 60 U/L (5-34); Albumin 2.9 g/dL (3.4-4.8); Alkaline Phosphatase 359 U/L (40-150); Anion Gap 17 mmol/L (10-20); BUN (Urea Nitrogen) 27 mg/dL (9.8-20.1); Bilirubin, Total 1.5 mg/dL (0.2-1.2); Calc. Creatinine Clearance 48 mL/min (70-130); Calcium 8.7 mg/dL (7.8-10.44); Carbon Dioxide 26 mmol/L (23-31); Chloride 104 mmol/L (98-107); Estimated GFR-MDRD 48; Globulin 2.9 g/dL (2.4-3.5); Glucose 92 mg/dL (83-110); Potassium 3.3 mmol/L (3.5-5.1); Protein, Total 5.8 g/dL (6.0-8.3); Sodium 144 mmol/L (136-145); Uric Acid 12.4 mg/dL (2.6-6.0)
[2018-04-26 05:51] LABS: Lactic Acid 1.6 mmol/L (0.5-2.2)
[2018-04-26 05:51] LABS: Bilirubin Negative (Negative); Blood, Urine Trace (Negative); Glucose, Urine (Dipstick) Negative (Negative); Leukocyte Negative (Negative); Nitrite Negative (Negative); Protein, Urine (Dipstick) Negative (Neg-Trace); Specific Gravity, Urine 1.015 (1.005-1.030); Urobilinogen 0.2 mg/dL (0.2-1.0)
[2018-04-26 05:53] LABS: Clarity Clear (Clear)
[2018-04-26 05:54] LABS: Bacteria/HPF None Seen HPF (None Seen); RBC/HPF 0-3 HPF (0-3); Transitional Epithelial 0-3 HPF (0-3); WBC/HPF 0-3 HPF (0-3)
[2018-04-26] MEDS: Furosemide 40 MG/4 ML VIAL SLOW IVP SCH ×2 (06:05→14:26)
[2018-04-26] MEDS: Saccharomyces boulardii 250 MG CAP PO SCH (08:24)
--- NOTE | 2018-04-26 11:09 | CT ---
CT ABDOMEN AND PELVIS WITH IV CONTRAST: Date: 04/26/18 PROVIDED CLINICAL HISTORY: Sepsis and abnormal LFTs. FINDINGS: There are at least moderate bilateral pleural effusions partially visualized. There are several filli ng defects seen within the caudal aspects of the visualized right atrium suspicious for thrombi. The largest of these measures at least 1.7 cm. Noncircumscribed fluid and gas density is seen within the gallbladder fossa adjacent to surgical clip s compatible with recent surgical change. The solid abdominal organs demonstrate no significant abnor mality with several benign-appearing foci of low density involving the spleen visualized. There is no bowel dilatation, inflammatory fat stranding within the abdomen, free fluid, or free air apparent. T he regional major vascular structures appear otherwise unremarkable. Foci of fat stranding in noncirc umscribed fluid are seen within the subcutaneous adipose layer. Foci of gas are seen within the subcu taneous adipose layer presumably postoperative in nature. The osseous structures demonstrate no concerning lytic or blastic lesions. IMPRESSION: 1. No evidence for an acute intra-abdominal process. Findings related to recent cholecystectomy. 2. Several filling defects are seen within the right atrium, compatible with thrombi. Correlation [facility] echocardiogram is recommended. 3. Bilateral pleural effusions. Findings communicated to the patient's nurse, Soco, at 1037 hours on 04/26/18. CODE CR. POS: MILI
[2018-04-26] MEDS ORDERED: Enoxaparin Sodium 80 MG/0.8 ML SYRINGE SC SCH (11:15)
[2018-04-26] MEDS ORDERED: ISOVUE-370 76%-LOCM 1 ML ONE (11:32)
--- NOTE | 2018-04-26 12:20 | PDOC.EVN ---
Event Note - Event Note Event Note: Chart reviewed, pt seen. Will follow.
[2018-04-26] MEDS: Enoxaparin Sodium 80 MG/0.8 ML SYRINGE SC SCH (20:53)
--- NOTE | 2018-04-27 01:02 | CON ---
DATE OF CONSULTATION: 04/26/2018 HISTORY OF PRESENT ILLNESS: Katerin Zamarripa is a 72-year-old white female who has been followed mostly by Dr. Cleve Lucas, [facility]. She was seen by Dr. Schultz here in 09/2016. In late 2015, she underwent a PET scan by Dr. Lucas that was apparently normal. She apparently has been hospitalized at [facility] here two times recently. The first time, she had altered mental status and had a urinary tract infection and was treated with antibiotics and was discharged home. She was not doing well, required another admission to [facility] and during an admission underwent cholecystectomy. She was weak and lethargic afterwards and was then placed in [facility]. She is now sent to the hospital after being more lethargic, have an increasing lower extremity edema and feeling short of breath. Patient cannot give me that specific of a history though and this is obtained from the medical records. To me, she denies any chest discomfort or shortness of breath. She has been found to be in atrial fibrillation with fast ventricular response. Also, CT scan of the abdomen revealed questionable thrombus present in the right atrium. PAST MEDICAL HISTORY: Hypertension, lupus, moderate mitral regurgitation, pulmonary artery hypertension, paroxysmal atrial fibrillation, chronic kidney disease, renal insufficiency. OPERATIONS: Recent cholecystectomy, right ankle surgery, right total knee replacement, bilateral cataract surgery. MEDICATIONS: Include amlodipine 5 mg q.a.m., calcium 1200 mg daily, furosemide 20 mg b.i.d., Fiber Gummies 4 grams b.i.d., losartan 25 daily, melatonin 3 mg at bedtime, multivitamin daily, prednisone 10 mg daily, Seroquel 25 mg at bedtime, and tramadol 50 mg b.i.d. ALLERGIES: SULFA, PROMETHAZINE, and HYDRALAZINE. SOCIAL HISTORY: She does not smoke or drink. Before these recent illnesses, she was living with her at home and was ambulatory with the aid of a walker. FAMILY HISTORY: Negative for coronary artery disease. REVIEW OF SYSTEMS: Twelve-point review of systems, otherwise unremarkable. PHYSICAL EXAMINATION: VITAL SIGNS: Blood pressure 135/92, pulse of 120 to 130. HEENT: PERRL. NECK: Supple. LUNGS: Chest reveals rales at the bases. CARDIOVASCULAR: S1 and S2 are normal without any S3 or S4. There is a 1-2/6 systolic murmur along the left sternal border. ABDOMEN: Normal bowel sounds without tenderness. EXTREMITIES: Revealed 1+ pretibial edema. NEUROLOGIC: Grossly intact. SKIN: Warm and dry. LABORATORY DATA: EKG revealed atrial fibrillation with incomplete right bundle branch block, possible old inferior infarction. Hemoglobin 10.4, hematocrit 32.7, white count 15,800, platelets 123,000. INR 1.2, sodium 144, potassium 3.3 , chloride 104, carbon dioxide 26, BUN 27, creatinine 1.12. AST 60, ALT 127, alkaline phosphatase 359. BNP 11,329. Troponin I 0.452. IMPRESSION: 1. Atrial fibrillation with fast ventricular response. At the current time, her rhythm looks fairly regular and EKG will be obtained to rule out flutter. 2. Questionable thrombus in the right atrium seen on abdominal CT. She has been placed on Lovenox 1 mg/kg b.i.d. 3. Possible sepsis with 21-50 wbc's in her urine. 4. Significantly elevated BNP, normal left ventricular systolic function in the past. This may represent diastolic heart failure. 5. Elevated liver function test probably due to hepatic congestion. 6. Demand ischemia. 7. Lactic acidosis. 8. Anemia. 9. History of lupus. 10. Hypertension. 11. Physical deconditioning. PLAN: Patient will be placed on Lovenox 1 mg/kg b.i.d. She will continue to be diuresed. Another EKG will be obtained to try to better delineate her rhythm. Currently, she is on Cardizem 10 mg per hour and other medications may be added depending upon the EKG. Echocardiogram has been performed; however, due to problems with the computer reading station, the echo cannot be reviewed at this time. Consideration may also need to be given to transesophageal echo to further evaluate for possible right atrial thrombus. Chest CTA may also need to be performed to rule out pulmonary embolism; however, with her just receiving a contrast load today, I would be very hesitant to do that at this time. I will follow the patient with you. YING
[2018-04-27] MEDS: Vancomycin HCl 1.25 GM in Sodium Chloride 0.9% 250 ML 250 ML IVPB SCH (04:04)
[2018-04-27] MEDS: Cefepime 2 GM in Sodium Chloride 0.9% 100 ML IVPB SCH (04:05)
[2018-04-27] MEDS: Furosemide 40 MG/4 ML VIAL SLOW IVP SCH ×2 (07:29→14:41)
[2018-04-27 07:44] VITALS: BMI 26.6
[2018-04-27] MEDS: Enoxaparin Sodium 80 MG/0.8 ML SYRINGE SC SCH ×2 (09:19→21:01)
[2018-04-27] MEDS: Saccharomyces boulardii 250 MG CAP PO SCH (09:19)
--- NOTE | 2018-04-27 16:33 | PDOC.PN ---
- Subjective Encounter Start Date: 04/27/18 Encounter Start Time: 08:20 Pt seen for followup re: CHF exacerbation. Awake and alert, denies chest pain or shortness of breath. No cough or fevers. c/o generalized weakness. - Objective Resuscitation Status: Resuscitation Status FULL:Full Resuscitation MAR Reviewed: Yes Vital Signs & Weight: Vital Signs (12 hours) Temp Pulse Resp BP Pulse Ox 04/27/18 16:01 99 F 132 H 18 136/75 97 04/27/18 11:57 98.2 F 133 H 18 134/68 97 04/27/18 09:57 99 04/27/18 07:58 98.7 F 125 H 20 149/80 H 99 Weight Admit Weight 145 lb Weight 141 lb I&O: 04/26/18 04/27/18 04/28/18 06:59 06:59 06:59 Intake Total 600 1060 Output Total 900 4550 Balance -300 -3490 Result Diagrams: 04/26/18 05:17 04/26/18 05:17 EKG Reviewed by me: Yes (Tele: atrial flutter) Phys Exam - Physical Examination Constitutional: NAD HEENT: moist MMs, sclera anicteric, oral pharynx no lesions, 2+ tonsils Neck: no nodes, no JVD, supple, full ROM Respiratory: no wheezing, no rhonchi Yo crackles Cardiovascular: RRR, no rub S1, s2 Gastrointestinal: soft, non-tender, no distention, positive bowel sounds Musculoskeletal: edema present Neurological: moves all 4 limbs Psychiatric: normal affect, A&O x 3 Dx/Plan (1) Acute exacerbation of CHF (congestive heart failure) Code(s): I50.9 - HEART FAILURE, UNSPECIFIED Status: Acute Qualifiers: Heart failure type: diastolic Qualified Code(s): I50.33 - Acute on chronic diastolic (congestive) heart failure Comment: continue IV furosemide. EF normal, likely diastolic HF. (2) Atrial flutter Code(s): I48.92 - UNSPECIFIED ATRIAL FLUTTER Status: Acute Comment: continue anticoagulation for now (3) Sepsis Code(s): A41.9 - SEPSIS, UNSPECIFIED ORGANISM Status: Acute Comment: Source unknown. Continue empiric IV antibiotics as below, await blood cultures (4) Abnormal LFTs Code(s): R94.5 - ABNORMAL RESULTS OF LIVER FUNCTION STUDIES Status: Acute Comment: Trend LFTs, check abdo US. Modst likely due to hepatic congestion from CHF exacerbation. (5) Thrombus of right atrial appendage Code(s): EZM0548 - Status: Suspected Comment: No evidence on TTE, pt may need ERASMO (6) Lupus (systemic lupus erythematosus) Code(s): M32.9 - SYSTEMIC LUPUS ERYTHEMATOSUS, UNSPECIFIED Status: Chronic Comment: stable - Plan * . Review of Systems - Review of Systems Constitutional: weakness. negative: fever, chills, sweats, malaise Respiratory: negative: Cough, Shortness of Breath, SOB with Excertion, Pleuritic Pain, Wheezing Cardiovascular: negative: chest pain, palpitations, orthopnea, paroxysmal nocturnal dyspnea, edema, light headedness Gastrointestinal: negative: Nausea, Vomiting, Abdominal Pain, Diarrhea, Constipation, Melena, Hematochezia Genitourinary: negative: Dysuria, Frequency, Incontinence, Hematuria, Retention Skin: negative: Rash, Lesions, [place], Bruising - Medications/Allergies Allergies/Adverse Reactions: Allergies Allergy/AdvReac Type Severity Reaction Status Date / Time Sulfa (Sulfonamide Allergy Severe Verified 04/26/18 03:46 Antibiotics) promethazine Allergy Mild Verified 04/26/18 03:46 hydralazine Allergy Verified 04/26/18 03:46 Medications: Current Medications Acetaminophen (Tylenol) 650 mg PO Q4H PRN PRN Reason: Headache/Fever or Pain Al Hydroxide/Mg Hydroxide (Maalox) 30 ml PO Q6H PRN PRN Reason: Heartburn or Indigestion Aspirin (Aspirin Chewable) 81 mg PO DAILY [facility] Last Admin: 04/27/18 09:19 Dose: 81 mg Enoxaparin Sodium (Lovenox) 70 mg SC 0900,2100 [facility] Last Admin: 04/27/18 09:19 Dose: 70 mg Furosemide (Lasix) 40 mg SLOW IVP 0600,1400 [facility] Last Admin: 04/27/18 14:41 Dose: 40 mg Vancomycin HCl 1.25 gm/ Sodium (Chloride) 250 mls @ 166.667 mls/hr IVPB Q24HR@ 0400 [facility] Last Admin: 04/27/18 04:04 Dose: 250 mls Cefepime HCl 2 gm/ Sodium (Chloride) 100 mls @ 200 mls/hr IVPB Q24HR@0300 [facility] Last Admin: 04/27/18 04:05 Dose: 100 mls Diltiazem HCl 125 mg/ Sodium (Chloride) 125 mls @ 10 mls/hr IVPB INF DUSTY; 10 MG /HR PRN Reason: Protocol Last Admin: 04/27/18 12:39 Dose: 125 mls Labetalol HCl (Normodyne) 10 mg SLOW IVP Q4H PRN PRN Reason: SBP Greater Than 180 Loperamide HCl (Imodium) 2 mg PO PRN PRN PRN Reason: Diarrhea/Loose Stools Magnesium Hydroxide (Milk Of Magnesium) 30 ml PO DAILYPRN PRN PRN Reason: Constipation Miscellaneous Medication (Pharmacy To Dose) 0 each IVPB PRN PRN PRN Reason: [facility] Pharmacy to Dose Ondansetron HCl (Zofran Odt) 4 mg PO Q6H PRN PRN Reason: Nausea/Vomiting Ondansetron HCl (Zofran) 4 mg IVP Q6H PRN PRN Reason: Nausea/Vomiting Saccharomyces Boulardii (Florastor) 250 mg PO DAILY [facility] Last Admin: 04/27/18 09:19 Dose: 250 mg Senna (Senokot) 2 tab PO HSPRN PRN PRN Reason: Constipation
[2018-04-27] MEDS ORDERED: Dronedarone HCl 400 MG TAB PO SCH (17:30)
[2018-04-27] MEDS ORDERED: Potassium Chloride 20 MEQ TAB PO SCH (17:30)
[2018-04-27] MEDS ORDERED: Digoxin 0.5 MG/2 ML AMP SLOW IVP SCH (17:30)
[2018-04-28] MEDS: Cefepime 2 GM in Sodium Chloride 0.9% 100 ML IVPB SCH (01:58)
[2018-04-28] MEDS: Vancomycin HCl 1.25 GM in Sodium Chloride 0.9% 250 ML 250 ML IVPB SCH (01:59)
[2018-04-28 03:20] LABS: Band 4 % (5-11); Hemoglobin 10.2 g/dL (12.0-16.0); Lymphocytes 8 % (21-51); MDiff Complete? YES; Mean Corpuscular HGB CONC 31.9 g/dL (32.0-36.0); Mean Corpuscular Hemoglobin 31.8 pg (27.0-31.0); Mean Corpuscular Volume 99.4 fl (81.0-99.0); Mean Platelet Volume 10.2 fL (7.4-10.4); Monocytes 2 % (0-10); Neutrophil 86 % (42-75); PLT Morphology Comment Appears Decreased; Platelet Count 118 thou/uL (130-400); Red Blood Cell (RBC) Count 3.21 mill/uL (4.20-5.40); White Blood Cell (WBC) Count 15.3 thou/uL (4.8-10.8)
[2018-04-28 03:22] LABS: Vancomycin, Trough 22.1 ug/mL
[2018-04-28 03:40] LABS: ALT (SGPT) 58 U/L (8-55); AST (SGOT) 40 U/L (5-34); Albumin 2.4 g/dL (3.4-4.8); Alkaline Phosphatase 200 U/L (40-150); Anion Gap 13 mmol/L (10-20); BUN (Urea Nitrogen) 18 mg/dL (9.8-20.1); Bilirubin, Total 1.4 mg/dL (0.2-1.2); Calc. Creatinine Clearance 56 mL/min (70-130); Calcium 8.1 mg/dL (7.8-10.44); Carbon Dioxide 35 mmol/L (23-31); Chloride 96 mmol/L (98-107); Estimated GFR-MDRD 59; Globulin 2.5 g/dL (2.4-3.5); Glucose 100 mg/dL (83-110); Potassium 3.5 mmol/L (3.5-5.1); Protein, Total 4.9 g/dL (6.0-8.3); Sodium 140 mmol/L (136-145)
[2018-04-28] MEDS: Furosemide 40 MG/4 ML VIAL SLOW IVP SCH ×2 (06:30→14:44)
[2018-04-28] MEDS ORDERED: PROPOFOL 20 ML ONE (07:57)
[2018-04-28] MEDS ORDERED: Dronedarone HCl 400 MG TAB PO SCH (08:00)
[2018-04-28] MEDS ORDERED: Digoxin 0.5 MG/2 ML AMP SLOW IVP SCH ×2 (08:30→13:00)
--- NOTE | 2018-04-28 08:46 | ULT ---
SONOGRAM ABDOMEN COMPLETE: HISTORY: Abnormal liver function tests. FINDINGS: Gallbladder is surgically absent. The common duct is 0.2 cm. Liver is unremarkable without focal ma ss or intrahepatic biliary dilatation. No free fluid is apparent within the abdomen. Bilateral pleu ral fluid is apparent. There is thinning of the cortex of each kidney. Tiny cysts at the inferior p ole right kidney. No hydronephrosis. The spleen and visualized portions of the abdominal aorta and IVC are unremarkable. Pancreas is partially obscured. IMPRESSION: 1. Status post cholecystectomy. No evidence of acute biliary obstruction. 2. Bilateral pleural fluid. 3. Bilateral, symmetric renal atrophy. POS: OFF
[2018-04-28] MEDS: Saccharomyces boulardii 250 MG CAP PO SCH (09:51)
[2018-04-28] MEDS: Enoxaparin Sodium 80 MG/0.8 ML SYRINGE SC SCH (09:51)
[2018-04-28] MEDS ORDERED: Vancomycin HCl 1 GM in Premix Bag 1 BAG IVPB SCH (12:00)
[2018-04-28] MEDS ORDERED: PROPOFOL 200 MG/20 ML VIAL ONE (13:12)
--- NOTE | 2018-04-28 13:18 | ECHO ---
TRANSESOPHAGEAL ECHO: HISTORY: This is a 72-year-old woman with paroxysmal atrial fibrillation and cardiac mass. DESCRIPTION OF PROCEDURE: The patient taken to PACU. The patient is sedated by anesthesiology. A transesophageal probe was placed to the distal esophagus and stomach. Echocardiograms were obtained. The transesophageal probe was removed. FINDINGS 1. Normal left ventricular systolic function. 2. Normal mitral and aortic valves. 3. Mild mitral regurgitation. 4. Mild tricuspid regurgitation. 5. There were 3 large masses noted in the right atrium. They were circumscribed and echogenic masses, and 1 mass appeared to be cystic. 6. Atherosclerotic debris in the descending aorta. IMPRESSION: Several echogenic masses in the right atrium suggestive of tumors. POS: MILI HE
[2018-04-28] MEDS ORDERED: cefTRIAXone\\ROCEPHIN 1 GM in Sodium Chloride 0.9% 100 ML IVPB SCH (14:00)
[2018-04-28] MEDS ORDERED: Cefepime 2 GM in Sodium Chloride 0.9% 100 ML IVPB SCH (15:00)
[2018-04-28] MEDS ORDERED: Potassium Chloride 10 MEQ TAB PO SCH (17:00)
[2018-04-28 17:17] VITALS: BP 164/74; TEMP 98.4
--- NOTE | 2018-04-29 00:42 | DIS ---
DATE OF ADMISSION: 04/25/2018 DATE OF DISCHARGE: 04/28/2018 PRIMARY CARE PROVIDER: Ant Tobias M.D. DISCHARGE DIAGNOSES: 1. Paroxysmal atrial fibrillation. 2. Cardiac masses. 3. Congestive heart failure exacerbation, diastolic. 4. Sepsis. 5. Abnormal liver function tests. CONDITION OF PATIENT ON THE DAY OF DISCHARGE: Stable. I assessed Ms. Zamarripa on the day of discharge . She denies any chest pain or shortness of breath. PHYSICAL EXAMINATION: VITAL SIGNS: Stable. CARDIOVASCULAR: S1 and S2 are heard, regular. LUNGS: The lung examination reveals bibasilar crackles. DISCHARGE MEDICATIONS: The patient is being transferred to [facility] in [place]. Her discharge medications include Tylenol 650 mg every 4 hours as needed, Maalox 30 mL every 6 hours as needed, asp irin 81 mg daily, ceftriaxone 1 gram IV q.24 hours, digoxin 0.125 mg daily, Cardizem infusion, Loveno x 70 mg q.12 hours, Lasix 40 mg IV twice daily, inulin 4 grams 2 times a day, losartan 25 mg daily, m elatonin 3 mg at bedtime, multivitamins 1 tablet daily, potassium chloride 10 mEq 2 times a day, pred nisone 10 mg daily, quetiapine 25 mg at bedtime, Florastor 250 mg daily, vancomycin 1 gram IV q.12 ho urs, labetalol 10 mg IV every 4 hours p.r.n., Imodium 2 mg p.r.n., milk of magnesia 30 mL daily p.r.n ., Zofran 4 mg every 6 hours as needed by mouth or IV, Senokot 2 tablets at bedtime as needed. HOSPITAL COURSE: Ms. Zamarripa is a pleasant, 72-year-old lady, who was admitted to [facility] from [facility] on 04/25/2018 for atrial fibrillation with rapid ventricular res ponse as well as suspected sepsis. She was also in congestive heart failure exacerbation, with a BNP greater than 11,000. She was treated with intravenous antibiotics for suspected sepsis. She was se en by Cardiology Service, Dr. Knox. She had CT scan of the abdomen and pelvis to rule out intra- abdominal source of sepsis. There was no evidence for an acute intra-abdominal process. She had sev eral filling defects within the right atrium, compatible with thrombi. She went on to have transthor acic echocardiogram on 04/27/2018, which showed left ventricular ejection fraction of 50%-55%. There was no evidence of thrombus or mass in the right atrium. On 04/28/2018, she went on to have ERASMO, wh ich showed normal left ventricular systolic function and three large masses in the right atrium. The re were circumscribed and echogenic masses and one mass appeared to be cystic. After discussion between Cardiology Service and patient and family, she is being transferred to [facility] for a cardiac MRI and further management. Many thanks for allowing me to participate in your patient's care. Please feel free to contact me wi th any questions or concerns. DISCHARGE DESTINATION: [facility] in [place]. TOTAL AMOUNT OF TIME SPENT COORDINATING THIS DISCHARGE: 33 minutes.
[2018-04-29] MEDS ORDERED: Digoxin 0.125 MG TAB PO SCH (09:00)
[2018-04-29] MEDS ORDERED: cefTRIAXone\\ROCEPHIN 1 GM in Sodium Chloride 0.9% 100 ML IVPB SCH (15:00)
== END 2018-04-28 17:20 | disposition short-term general hospital (02) | DRG 871 ==
LOC: ERS 19:01 → 2NO 23:15
PROVIDERS: ADMIT Internal Medicine; ATTEND Internal Medicine
DX: A41.9 Sepsis, unspecified organism (principal); G93.41 Metabolic encephalopathy; I50.33 Acute on chronic diastolic (congestive) heart failure; E27.40 Unspecified adrenocortical insufficiency; E87.2 Acidosis; I48.92 Unspecified atrial flutter; I24.8 Other forms of acute ischemic heart disease; I13.0 Hypertensive heart and chronic kidney disease with heart failure and stage 1 through stage 4 chronic kidney disease, or unspecified chronic kidney disease; F03.90 Unspecified dementia, unspecified severity, without behavioral disturbance, psychotic disturbance, mood disturbance, and anxiety; I16.0 Hypertensive urgency; I08.1 Rheumatic disorders of both mitral and tricuspid valves; I27.20 Pulmonary hypertension, unspecified; I48.0 Paroxysmal atrial fibrillation; N18.3 Chronic kidney disease, stage 3 (moderate); Z96.653 Presence of artificial knee joint, bilateral; Z88.2 Allergy status to sulfonamides; Z88.8 Allergy status to other drugs, medicaments and biological substances; Z90.49 Acquired absence of other specified parts of digestive tract; D69.6 Thrombocytopenia, unspecified; R74.0 Nonspecific elevation of levels of transaminase and lactic acid dehydrogenase [LDH]
CPT/HCPCS: 36415; 70450; 71045; 74177; 76700; 80053; 80202; 81001; 82140; 82550; 82553; 83605; 83690; 83735; 83880; 84484; 84550; 85025; 85610; 85730; 87040; 92960; 93005; 93010; 93306; 93312; 96372; 96374; J0692; J0696; J1160; J1650; J1940; J2060; J2704; J3370; J3486; J7050

== ENCOUNTER 2018-05-15 09:30 | Inpatient (IN) | payer MEDICARE, BC ==
[2018-05-15 10:48] LABS: Hemoglobin 13.2 g/dL (12.0-16.0); Mean Corpuscular HGB CONC 31.6 g/dL (32.0-36.0); Mean Corpuscular Hemoglobin 30.3 pg (27.0-31.0); Mean Corpuscular Volume 95.7 fL (78.0-98.0); Mean Platelet Volume 8.3 fL (7.4-10.4); Platelet Count 308 thou/uL (130-400); RBC Distribution Width 15.9 % (11.5-14.5); Red Blood Cell (RBC) Count 4.36 mill/uL (4.20-5.40); White Blood Cell (WBC) Count 19.3 thou/uL (4.8-10.8)
[2018-05-15 11:05] LABS: ALT (SGPT) 14 U/L (8-55); AST (SGOT) 33 U/L (5-34); Albumin 3.3 g/dL (3.4-4.8); Alkaline Phosphatase 118 U/L (40-150); Anion Gap 21 mmol/L (10-20); BUN (Urea Nitrogen) 41 mg/dL (9.8-20.1); Bilirubin, Total 0.9 mg/dL (0.2-1.2); Calc. Creatinine Clearance 0 mL/min (70-130); Calcium 9.2 mg/dL (7.8-10.44); Carbon Dioxide 21 mmol/L (23-31); Chloride 98 mmol/L (98-107); Estimated GFR-MDRD 16; Globulin 3.8 g/dL (2.4-3.5); Glucose 110 mg/dL (83-110); Lipase 24 U/L (8-78); Potassium 5.6 mmol/L (3.5-5.1); Protein, Total 7.1 g/dL (6.0-8.3); Sodium 134 mmol/L (136-145)
[2018-05-15 11:10] LABS: Band 6 % (5-11); Lymphocytes 10 % (21-51); MDiff Complete? YES; Monocytes 2 % (0-10); Neutrophil 81 % (42-75); RBC Morphology Normal
--- NOTE | 2018-05-15 11:15 | RAD ---
PORTABLE CHEST: Indications: Chest pain. Comparison: 04-25-18 FINDINGS: There is improvement in the chest when compared to the recent exam. Pleural effusions appear to have decreased. Vascular congestion is also less pronounced. The heart is upper normal size and stable. Th ere is evidence of small residual effusions. IMPRESSION: Overall improvement in the appearance of the chest when compared to 04-25-18. Small residual effusions remain. POS: [facility]
[2018-05-15 11:17] LABS: Troponin I 0.269 ng/mL (< 0.028)
[2018-05-15] MEDS ORDERED: cefTRIAXone\\ROCEPHIN 2 GM VIAL ONE (11:43)
[2018-05-15 11:54] LABS: Bilirubin Negative (Negative); Blood, Urine Trace (Negative); Glucose, Urine (Dipstick) Negative (Negative); Leukocyte Moderate (Negative); Nitrite Positive (Negative); Protein, Urine (Dipstick) Negative (Neg-Trace); Specific Gravity, Urine 1.015 (1.005-1.030); Urobilinogen 0.2 mg/dL (0.2-1.0)
[2018-05-15 11:57] LABS: Clarity CLEAR (Clear)
[2018-05-15 12:03] LABS: RBC/HPF 0-3 HPF (0-3); Squamous Epithelial 0-3 HPF (0-3); WBC/HPF 21-50 HPF (0-3)
[2018-05-15 12:04] LABS: Bacteria/HPF 2+ HPF (None Seen); Hyaline Casts/LPF NONE SEEN LPF (0-3 Hyaline); Yeast-All Forms 1+ HPF (None Seen)
[2018-05-15] MEDS ORDERED: Ondansetron HCl/PF 4 MG/2 ML Vial IVP PRN (14:08)
[2018-05-15] MEDS ORDERED: Guaifenesin DM 100-10/5 ML UDCUP PO PRN (14:08)
[2018-05-15 14:36] LABS: Digoxin 2.66 ng/mL (0.8-2.0)
[2018-05-15] MEDS: Sodium Chloride 0.9% 1,000 ML IV SCH (15:54)
--- NOTE | 2018-05-15 16:35 | HP ---
REASON FOR ADMISSION: Acute kidney injury, possible UTI, moderate to severe dehydration, failure to thrive. HISTORY OF PRESENTING ILLNESS: Please note patient is a very poor historian and does not recall the reason why she was sent from rehabilitation. Per ER physician, the patient had lab work done this mo rning and it showed elevated renal function numbers and a high potassium and the patient was sent ove r here. Also, her white count was elevated. The patient states that she has very poor appetite and has not been eating well. She also has had diarrhea nearly 4-5 times per day and it is watery in surjit ure. No blood or mucus in her stool. The patient states she has not really ambulated with physical therapy. 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 Per son, Mr. Antonio Zamarripa whom I spoke to on the phone, she was not able to get her cardiac MRI at the facility in [place]. She in fact had multiple workups and was hospitalize d for 13 days there. She has had MRI of the brain which showed some swelling of the base of her brai n related to hypertension. She also had upper endoscopy which had a small ulcer which was biopsied a nd was not worrisome per her son. She was placed on Eliquis after multiple workups did not reveal an y etiology for the mass in the right atrium. She was suspected to have clots and was put on Eliquis. She was transferred to rehab on Friday. The is here at bedside, who is equally poor histor soy and does not recall much. Per son, patient has had issues with her GI tract every 2-3 weeks or s o with diarrhea or colicky pains for most of her life. Currently, has no complaints of chest pain, p alpitation, PND or orthopnea. 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 Chronic history of lupus with her being on p rednisone 10 mg for more than 10 years, which has been managed by Dr. Frias per son. Moderate mitr al and tricuspid regurgitation, paroxysmal atrial fibrillation, chronic kidney disease stage 3, recen t cholecystectomy 6 weeks back, right total knee replacement, right ankle surgery, bilateral cataract surgery. PERSONAL HISTORY: Does not abuse alcohol or drugs. No history of smoking. FAMILY HISTORY: Mother at the age of 93 years. Father at the age of 65 years. He has had history of lung cancer and was a heavy smoker. CURRENT MEDICATIONS: The patient is on losartan 25 mg daily, calcium carbonate 600 mg p.o. daily, pr ednisone 10 mg p.o. daily, Seroquel 25 mg p.o. at bedtime, Lasix 40 mg twice daily, Protonix 40 mg tw ice daily, digoxin 0.125 mg p.o. daily, Norvasc 5 mg p.o. daily, Eliquis 5 mg p.o. twice daily. ALLERGIES: HYDRALAZINE, PROMETHAZINE and SULFA. CODE STATUS: FULL. This was discussed with patient, her and her son as well. REVIEW OF SYSTEMS: The following complete review of systems was negative, unless otherwise mentioned in the HPI or below: Constitutional: Weight loss or gain, ability to conduct usual activities. Skin: Rash, itching. Eyes: Double vision, pain. ENT/Mouth: Nose bleeding, neck stiffness, pain, tenderness. Cardiovascular: Palpitations, dyspnea on exertion, orthopnea. Respiratory: Shortness of breath, wheezing, cough, hemoptysis, fever or night sweats. Gastrointestinal: Poor appetite, abdominal pain, heartburn, nausea, vomiting, constipation, or diarr hea. Genitourinary: Urgency, frequency, dysuria, nocturia. Musculoskeletal: Pain, swelling. Neurologic/Psychiatric: Anxiety, depression. Allergy/Immunologic: Skin rash, bleeding tendency. PHYSICAL EXAMINATION: GENERAL: The patient is a 72-year-old female who is currently not in any acute distress. VITAL SIGNS: Blood pressure 126/74, pulse 100 per minute, respiratory rate 22 per minute, temperatur e 97.9 degrees Fahrenheit, saturating 96% on room air. NECK: Supple, no elevated JVD. EYES: Extraocular muscles intact. Pupils reacting to light. ORAL CAVITY: Mucous membranes are moist. No exudates or congestion. CARDIOVASCULAR SYSTEM: S1, S2 heard. Regular rhythm. RESPIRATORY SYSTEM: Air entry 1+ bilaterally. No rales or rhonchi. ABDOMEN: Soft, bowel sounds heard. No tenderness, rigidity or guarding. EXTREMITIES: No peripheral edema or calf tenderness. VASCULAR SYSTEM: Peripheral pulses 1+ bilateral, no ischemic ulcerations or gangrene. CENTRAL NERVOUS SYSTEM: No gross focal deficits seen. The patient is alert, awake and fairly orient ed. PSYCHIATRIC: The patient's mood is euthymic. No hallucinations or delusions. IMAGING DATA AND LABORATORY DATA: EKG done shows atrial fibrillation at 98 beats per minute. There are T inversion seen in lead I, aVL, V1, V2, signs of LVH and RBBB. White count of 19, hemoglobin an d hematocrit 13 and 41, platelet count 308 with 81% neutrophils. Potassium 5.6, BUN 41, creatinine 2 .8, serum bicarbonate 21. Liver enzymes are within normal limits. CK 26, CK-MB 4.0. BNP 405, album in is 3.3. Troponin I 0.26. Lipase is 24. UA shows moderate leukocyte esterase, nitrite positive, 21-50 wbcs, 2+ bacteria. Digoxin levels are elevated at 2.6. Stool for C. diff is negative and is a lso negative for Giardia and Cryptosporidium. Chest x-ray done shows small pleural effusions, otherw ise no acute infiltrate. CLINICAL IMPRESSION AND PLAN: The patient will be admitted to telemetry for acute kidney injury on t op of her chronic kidney disease stage III/IV, moderate dehydration, failure to thrive, multiple hosp italizations in the last 8 weeks, diarrhea for further evaluation, demand ischemia. She was given 2 liters of bolus fluids in the ER and we will continue her on 70 mL per hour. We will check her lab w ork in the morning. The patient is chronically on prednisone and likely has elevated white count. Obey gomez will continue her on aspirin 81 mg and Eliquis. She was recently found to have had a peptic ulcer and in view of this, we will continue her on Protonix and will be closely monitored for any bleeding with her being on Eliquis. We will also continue her on Florastor, Seroquel, Norvasc, melatonin as b efore. Her digoxin will be held in view of current toxicity. We will obtain ultrasound venous Doppl er of lower extremities to rule out deep venous thrombosis. It is unclear if patient has lupus relat ed vasculitis and subsequent development of thrombus in the right atrium. We will try to obtain daljit rds of all the tests done at [facility] in [place].
[2018-05-15 17:01] LABS: Anion Gap 15 mmol/L (10-20); BUN (Urea Nitrogen) 37 mg/dL (9.8-20.1); Calc. Creatinine Clearance 18 mL/min (70-130); Calcium 8.3 mg/dL (7.8-10.44); Carbon Dioxide 22 mmol/L (23-31); Chloride 102 mmol/L (98-107); Estimated GFR-MDRD 19; Glucose 113 mg/dL (83-110); Potassium 5.2 mmol/L (3.5-5.1); Sodium 134 mmol/L (136-145)
--- NOTE | 2018-05-15 17:01 | ULT ---
ULTRASOUND WITH DOPPLER DUPLEX VENOUS LOWER EXTREMITY BILATERAL 05/15/18 CPT: 71653 ICD-10-PCS: [id number] HISTORY: Edema, pain. TECHNIQUE: Color flow Doppler, spectral waveform analysis of pulsed Doppler, and ag-scale imaging with dustin stacy and augmentation, were used to evaluate the bilateral common femoral, femoral, popliteal, plaster mixer ior tibial, and superficial femoral, veins; and the proximal portions of the profunda femoral and gre ater saphenous, veins. FINDINGS: There is lack of appropriate compressibility within the right lower extremity from the level of the c ommon femoral vein through the popliteal vein. Flow is documented within this region indicating parti ally occlusive thrombus. No DVT of the left lower extremity is seen. IMPRESSION: Partially occlusive DVT of right lower extremity. Patient's nurse, Liana, was notified of the findings at the time of the exam. Code CR POS: [id number]
[2018-05-15 17:28] LABS: Complement-C4 30.6 mg/dL (15-57)
[2018-05-15 18:40] LABS: Hemoglobin 12.7 g/dL (12.0-16.0); Platelet Count 260 thou/uL (130-400)
[2018-05-15 19:03] LABS: Digoxin 1.81 ng/mL (0.8-2.0)
[2018-05-15] MEDS: Melatonin 3 MG TAB PO SCH (22:04)
[2018-05-15] MEDS: Apixaban 5 MG TAB PO SCH (22:05)
--- NOTE | 2018-05-16 01:18 | CON ---
DATE OF CONSULTATION: 05/15/2018 REASON FOR CONSULTATION: Elevated creatinine, hyperkalemia. HISTORY OF PRESENT ILLNESS: This 72-year-old female presented to the hospital with a 2 to 3-day history of diarrhea and was noted to have elevated creatinine. The patient denied any nausea, vomiting, or chest pain. The patient's creatinine did increase from a baseline of 0.93 on 04/28/2018 and 1.64 on 05/14/2018 to 2.5 today and 2.8 respectively. After hydration, her creatinine has improved. The patient denies headache, numbness, tingling, or weakness. Denies any nausea, vomiting, or chest pain. PAST MEDICAL HISTORY: Significant for right mass, history of lupus, history of CKD, acute kidney injury, mitral regurgitation, cholecystectomy, right knee replacement, right ankle surgery, bilateral surgery. SOCIAL HISTORY: No alcohol or drug use. FAMILY HISTORY: Negative for ESRD. ALLERGIES: Reviewed. HOME MEDICATIONS: List reviewed. PHYSICAL EXAMINATION: GENERAL: The patient is awake, alert. VITAL SIGNS: Afebrile, pulse 75, breathing at 16, blood pressure was 136/74. GENERAL APPEARANCE AND MENTAL STATUS: Fair. HEAD/NECK: Normocephalic. Atraumatic. EYES: EOMI. No deformity. EARS: Clear. No ulcers. NOSE: Intact. No lesions. MOUTH: Clear. No discharge. THROAT: Clear. No exudate. LUNGS: Clear. No crackles. CARDIAC: S1, S2. No rub. ABDOMEN: Benign. BS+. GENITALIA/RECTUM: Castellon absent. BACK/EXTREMITIES: Edema 0+. Ulcer-. NEUROLOGICAL: Alert and motor intact. SKIN: Rash-. Bruise-. LYMPHATICS: Edema-. Ulcer-. LABORATORY DATA: Potassium is 5.6, bicarbonate 21, creatinine 1. ASSESSMENT AND RECOMMENDATIONS: 1. Acute kidney injury with chronic kidney disease stage 4, most likely due to decreased effective arterial blood volume. Continue hydration. 2. Hyperkalemia. We will give Kayexalate and hydrate. 3. Metabolic acidosis. Start sodium bicarbonate. 4. Elevated digoxin level. I would recommend FEB antibody. Risks versus benefits of the treatments were discussed with the patient. No urgent indication for dialysis, but if the potassium does not improve, we will consider renal replacement therapy. [facility]
[2018-05-16] MEDS: Sodium Chloride 0.9% 1,000 ML IV SCH ×2 (05:11→18:22)
[2018-05-16 05:29] LABS: #Eosinphils 0.1 thou/uL (0.0-0.7); #Lymphocytes 0.9 thou/uL (1.20-3.40); #Monocytes 0.5 thou/uL (0.11-0.59); #Neutrophils 9.6 thou/uL (1.40-6.50); %Basophils 0.4 % (0.0-1.0); %Eosinophils 0.8 % (0.0-10.0); %Lymphocytes 8.2 % (21.0-51.0); %Monocytes 4.5 % (0.0-10.0); %Neutrophils 86.2 % (42.0-75.0); Hemoglobin 10.6 g/dL (12.0-16.0); Mean Corpuscular HGB CONC 30.2 g/dL (32.0-36.0); Mean Corpuscular Hemoglobin 28.7 pg (27.0-31.0); Mean Corpuscular Volume 95.2 fL (78.0-98.0); Mean Platelet Volume 8.1 fL (7.4-10.4); Platelet Count 170 thou/uL (130-400); RBC Distribution Width 15.7 % (11.5-14.5); White Blood Cell (WBC) Count 11.1 thou/uL (4.8-10.8)
[2018-05-16 05:38] LABS: Anion Gap 15 mmol/L (10-20); BUN (Urea Nitrogen) 33 mg/dL (9.8-20.1); Calc. Creatinine Clearance 23 mL/min (70-130); Calcium 7.6 mg/dL (7.8-10.44); Carbon Dioxide 17 mmol/L (23-31); Chloride 108 mmol/L (98-107); Estimated GFR-MDRD 25; Glucose 76 mg/dL (83-110); Potassium 4.2 mmol/L (3.5-5.1); Sodium 136 mmol/L (136-145)
[2018-05-16] MEDS ORDERED: Digoxin 0.125 MG TAB PO SCH (09:00)
[2018-05-16] MEDS: Amlodipine 5 MG TAB PO SCH (10:04)
[2018-05-16] MEDS: Famotidine 20 MG TAB PO SCH (10:04)
[2018-05-16] MEDS: Apixaban 5 MG TAB PO SCH ×2 (10:04→20:50)
[2018-05-16] MEDS: Saccharomyces boulardii 250 MG CAP PO SCH (10:05)
[2018-05-16 11:39] VITALS: BMI 22.8
--- NOTE | 2018-05-16 11:39 | PDOC.PN ---
- Subjective Encounter Start Date: 05/16/18 Encounter Start Time: 10:00 Subjective: awake, responding well, no sob, feels better -: son and at bedside - Objective MAR Reviewed: Yes Vital Signs & Weight: Vital Signs (12 hours) Temp Pulse Resp BP Pulse Ox 05/16/18 10:04 106 H 05/16/18 08:00 97.6 F 106 H 14 149/66 H 05/16/18 04:00 98.4 F 99 16 105/53 L 95 05/16/18 00:08 95 05/16/18 00:00 98.4 F 101 H 16 118/57 L Weight Weight 120 lb 14.4 oz I&O: 05/15/18 05/16/18 05/17/18 06:59 06:59 06:59 Intake Total 1140 Balance 1140 Result Diagrams: 05/16/18 05:09 05/16/18 05:09 Phys Exam - Physical Examination HEENT: PERRLA, moist MMs Neck: no JVD, supple Respiratory: no wheezing, no rales Cardiovascular: RRR, no significant murmur Gastrointestinal: soft, non-tender, positive bowel sounds Musculoskeletal: no edema, pulses present Neurological: non-focal, moves all 4 limbs Dx/Plan (1) BILL (acute kidney injury) Code(s): N17.9 - ACUTE KIDNEY FAILURE, UNSPECIFIED Status: Acute (2) CKD (chronic kidney disease) stage 3, GFR 30-59 ml/min Code(s): N18.3 - CHRONIC KIDNEY DISEASE, STAGE 3 (MODERATE) Status: Chronic (3) DVT (deep venous thrombosis) Code(s): I82.409 - ACUTE EMBOLISM AND THOMBOS UNSP DEEP VN UNSP LOWER EXTREMITY Status: Chronic Qualifiers: DVT location: lower extremity Chronicity: unspecified Laterality: right (4) Right atrial thrombus Code(s): ULJ4047 - Status: Chronic (5) Metabolic acidosis Code(s): E87.2 - ACIDOSIS Status: Acute (6) Moderate dehydration Code(s): E86.0 - DEHYDRATION Status: Acute (7) Anemia, normocytic normochromic Code(s): D64.9 - ANEMIA, UNSPECIFIED Status: Chronic (8) Lupus (systemic lupus erythematosus) Code(s): M32.9 - SYSTEMIC LUPUS ERYTHEMATOSUS, UNSPECIFIED Status: Chronic Qualifiers: Systemic lupus erythematosus type: unspecified Comment: stable - Plan gentle hydration -: encourage po intake, has not provided stool sample yet -: on eliquis for dvt/right atrial thrombus -: [facility] from [facility], reviewed -: no evidence for sepsis. Continue norvasc, asp. * . stool sample in [place] was -ve for cdiff. Review of Systems - Medications/Allergies Allergies/Adverse Reactions: Allergies Allergy/AdvReac Type Severity Reaction Status Date / Time Sulfa (Sulfonamide Allergy Severe Verified 04/26/18 03:46 Antibiotics) promethazine Allergy Mild Verified 04/26/18 03:46 hydralazine Allergy Verified 04/26/18 03:46 Medications: Current Medications Acetaminophen (Tylenol) 650 mg PO Q4H PRN PRN Reason: Headache/Fever or Pain Amlodipine Besylate (Norvasc) 5 mg PO DAILY [facility] Last Admin: 05/16/18 10:04 Dose: 5 mg Apixaban (Eliquis) 5 mg PO BID [facility] Last Admin: 05/16/18 10:04 Dose: 5 mg Aspirin (Aspirin Chewable) 81 mg PO DAILY [facility] Last Admin: 05/16/18 10:04 Dose: 81 mg Famotidine (Pepcid) 20 mg PO DAILY [facility] Last Admin: 05/16/18 10:04 Dose: 20 mg Guaifenesin/Dextromethorphan (Robitussin Dm) 15 ml PO Q4H PRN PRN Reason: Cough Sodium Chloride (Normal Saline 0.9%) 1,000 mls @ 70 mls/hr IV .[id number] [facility] Last Admin: 05/16/18 05:11 Dose: 1,000 mls Melatonin (Melatonin) 3 mg PO HS [facility] Last Admin: 05/15/18 22:04 Dose: 3 mg Ondansetron HCl (Zofran) 4 mg IVP Q6H PRN PRN Reason: Nausea/Vomiting Pantoprazole Sodium (Protonix) 40 mg PO DAILY [facility] Last Admin: 05/16/18 10:04 Dose: 40 mg Quetiapine Fumarate (Seroquel) 25 mg PO HS [facility] Last Admin: 05/15/18 22:04 Dose: 25 mg Saccharomyces Boulardii (Florastor) 250 mg PO DAILY [facility] Last Admin: 05/16/18 10:05 Dose: 250 mg
--- NOTE | 2018-05-16 12:18 | PRG ---
DATE OF SERVICE: 05/16/2018 SUBJECTIVE: A 72-year-old lady being seen for acute kidney injury. The patient denies any nausea, v omiting, or chest pain. PHYSICAL EXAMINATION: GENERAL: Patient is awake, alert. VITAL SIGNS: Afebrile, pulse 99, breathing 16, blood pressure 146/66. HEAD/NECK: Normocephalic. Atraumatic. EYES: EOMI. No deformity. EARS: Clear. No ulcers. NOSE: Intact. No lesions. MOUTH: Clear. No discharge. THROAT: Clear. No exudate. LUNGS: Clear. No crackles. CARDIAC: S1, S2. No rub. ABDOMEN: Benign. BS+. GENITALIA/RECTUM: Castellon absent. BACK/EXTREMITIES: Edema 0+ Ulcer- NEUROLOGICAL: Alert and motor intact. SKIN: Rash- Bruise- LYMPHATICS: Edema- Ulcer- LABORATORY DATA: Show 10.6, bicarbonate 17, potassium 5.2, creatinine 1.9. ASSESSMENT AND RECOMMENDATIONS: 1. Acute kidney injury, improved. 2. Hyperkalemia, improved. 3. Metabolic acidosis, stable. 4. Hypertension, stable. 5. Medications based on GFR are appropriate. No indication for dialysis. Continue hydration.
[2018-05-16 18:20] LABS: dsDNA IgG Antibody 3.1 IU/mL (<10 Negative)
[2018-05-16] MEDS: Melatonin 3 MG TAB PO SCH (20:50)
[2018-05-17] MEDS: Sodium Chloride 0.9% 1,000 ML IV SCH ×2 (07:06→21:26)
[2018-05-17] MEDS: Famotidine 20 MG TAB PO SCH (08:04)
[2018-05-17] MEDS: Saccharomyces boulardii 250 MG CAP PO SCH (08:04)
[2018-05-17] MEDS: Apixaban 5 MG TAB PO SCH ×2 (08:04→21:25)
[2018-05-17] MEDS: Amlodipine 5 MG TAB PO SCH (08:05)
[2018-05-17] MEDS: Acetaminophen 325 MG TAB PO PRN (09:42)
[2018-05-17] MEDS ORDERED: Diphenoxylate HCl/Atropine Tablet PO SCH (11:45)
--- NOTE | 2018-05-17 12:20 | PRG ---
DATE OF SERVICE: 05/17/2018 SUBJECTIVE: This is a 72-year-old female being seen for acute kidney injury. The patient denies joanne sea, vomiting, or chest pain. OBJECTIVE: GENERAL: Patient is awake, alert. VITAL SIGNS: Afebrile, pulse 95, breathing 16, blood pressure 133/75. HEENT: Atraumatic, normocephalic. Oral mucosa is moist. NECK: Supple. CARDIOVASCULAR: S1 and S2 heard. Rate and rhythm regular. RESPIRATORY: Clear to auscultation. GASTROINTESTINAL: Abdomen is soft. MUSCULOSKELETAL: No tenderness. No edema. DERMATOLOGIC: No skin rash. NEUROLOGIC: Alert and awake and oriented x3. No focal neurologic deficits. Moving all the extremit ies. PSYCHIATRIC: Mood and affect normal. LABORATORY: Hemoglobin 10.6, potassium 4.2. ASSESSMENT AND RECOMMENDATIONS: 1. Acute kidney, improved. 2. Metabolic acidosis, stable. 3. Hypertension, stable. 4. Anemia, stable. No indication for dialysis. Continue hydration.
[2018-05-17] MEDS: Vancomycin HCl 25 MG/ML Oral PO SCH ×3 (12:35→21:24)
[2018-05-17 12:50] LABS: Anion Gap 17 mmol/L (10-20); BUN (Urea Nitrogen) 18 mg/dL (9.8-20.1); Calc. Creatinine Clearance 41 mL/min (70-130); Calcium 7.6 mg/dL (7.8-10.44); Carbon Dioxide 12 mmol/L (23-31); Chloride 116 mmol/L (98-107); Estimated GFR-MDRD 49; Glucose 101 mg/dL (83-110); Potassium 5.2 mmol/L (3.5-5.1); Sodium 140 mmol/L (136-145)
--- NOTE | 2018-05-17 12:57 | PDOC.PN ---
- Subjective Encounter Start Date: 05/17/18 Encounter Start Time: 11:00 Subjective: per staff had 3 episodes of diarrhea from this am and 4 last night, watery -: pt feels better with no complaints -: no nausea, is tolerating oral diet - Objective MAR Reviewed: Yes Vital Signs & Weight: Vital Signs (12 hours) Temp Pulse Resp BP BP BP Pulse Ox 05/17/18 11:29 98.6 F 95 14 133/75 100 05/17/18 08:05 104 H 126/66 05/17/18 08:00 99.8 F H 104 H 18 126/66 99 05/17/18 04:00 99.0 F 103 H 18 103/64 99 Weight Admit Weight 122 lb 8 oz Weight 120 lb 14.4 oz I&O: 05/16/18 05/17/18 05/18/18 06:59 06:59 06:59 Intake Total 1140 1080 Balance 1140 1080 Result Diagrams: 05/16/18 05:09 05/17/18 12:24 Phys Exam - Physical Examination HEENT: PERRLA, moist MMs Neck: no JVD, supple Respiratory: no wheezing, no rales Cardiovascular: RRR, no significant murmur Gastrointestinal: soft, non-tender, positive bowel sounds Musculoskeletal: no edema, pulses present Neurological: non-focal, moves all 4 limbs Dx/Plan (1) BILL (acute kidney injury) Code(s): N17.9 - ACUTE KIDNEY FAILURE, UNSPECIFIED Status: Resolved (2) CKD (chronic kidney disease) stage 3, GFR 30-59 ml/min Code(s): N18.3 - CHRONIC KIDNEY DISEASE, STAGE 3 (MODERATE) Status: Chronic (3) DVT (deep venous thrombosis) Code(s): I82.409 - ACUTE EMBOLISM AND THOMBOS UNSP DEEP VN UNSP LOWER EXTREMITY Status: Chronic Qualifiers: DVT location: lower extremity Chronicity: unspecified Laterality: right (4) Right atrial thrombus Code(s): [id number] - Status: Chronic (5) Metabolic acidosis Code(s): E87.2 - ACIDOSIS Status: Acute (6) Moderate dehydration Code(s): E86.0 - DEHYDRATION Status: Acute (7) Anemia, normocytic normochromic Code(s): D64.9 - ANEMIA, UNSPECIFIED Status: Chronic (8) Lupus (systemic lupus erythematosus) Code(s): M32.9 - SYSTEMIC LUPUS ERYTHEMATOSUS, UNSPECIFIED Status: Chronic Qualifiers: Systemic lupus erythematosus type: unspecified Comment: stable (9) C. difficile colitis Status: Suspected - Plan had -ve stool test for c.diff at [facility] last month, is +ve for ag now b -: -ut -ve for toxin by pcr. Clinically has severe diarrhea with bill/met acido -: Will empirically treat for c.diff for now to see response -: Originally plan was to dc her today to snf but hold dc due to diarrhea -: is on asp, eliquis, norvasc and gentle iv hydration * . Review of Systems - Medications/Allergies Allergies/Adverse Reactions: Allergies Allergy/AdvReac Type Severity Reaction Status Date / Time Sulfa (Sulfonamide Allergy Severe Verified 04/26/18 03:46 Antibiotics) promethazine Allergy Mild Verified 04/26/18 03:46 hydralazine Allergy Verified 04/26/18 03:46 Medications: Current Medications Acetaminophen (Tylenol) 650 mg PO Q4H PRN PRN Reason: Headache/Fever or Pain Last Admin: 05/17/18 09:42 Dose: 650 mg Amlodipine Besylate (Norvasc) 5 mg PO DAILY [facility] Last Admin: 05/17/18 08:05 Dose: 5 mg Apixaban (Eliquis) 5 mg PO BID [facility] Last Admin: 05/17/18 08:04 Dose: 5 mg Aspirin (Aspirin Chewable) 81 mg PO DAILY [facility] Last Admin: 05/17/18 08:04 Dose: 81 mg Diphenoxylate HCl/Atropine (Lomotil) 1 tab PO NOW [facility] Stop: 05/17/18 13:45 Last Admin: 05/17/18 12:36 Dose: 1 tab Famotidine (Pepcid) 20 mg PO DAILY [facility] Last Admin: 05/17/18 08:04 Dose: 20 mg Guaifenesin/Dextromethorphan (Robitussin Dm) 15 ml PO Q4H PRN PRN Reason: Cough Sodium Chloride (Normal Saline 0.9%) 1,000 mls @ 70 mls/hr IV .[id number] [facility] Last Admin: 05/17/18 07:06 Dose: 1,000 mls Melatonin (Melatonin) 3 mg PO HS [facility] Last Admin: 05/16/18 20:50 Dose: 3 mg Ondansetron HCl (Zofran) 4 mg IVP Q6H PRN PRN Reason: Nausea/Vomiting Pantoprazole Sodium (Protonix) 40 mg PO DAILY [facility] Last Admin: 05/17/18 08:04 Dose: 40 mg Quetiapine Fumarate (Seroquel) 25 mg PO HS [facility] Last Admin: 05/16/18 20:50 Dose: 25 mg Saccharomyces Boulardii (Florastor) 250 mg PO DAILY [facility] Last Admin: 05/17/18 08:04 Dose: 250 mg Vancomycin HCl (First Vancomycin) 125 mg PO QID [facility] Last Admin: 05/17/18 12:35 Dose: 125 mg
[2018-05-17 18:19] LABS: Hemoglobin 10.3 g/dL (12.0-16.0); Platelet Count 200 thou/uL (130-400)
[2018-05-17] MEDS: Melatonin 3 MG TAB PO SCH (21:25)
[2018-05-18 07:37] LABS: Anion Gap 11 mmol/L (10-20); BUN (Urea Nitrogen) 11 mg/dL (9.8-20.1); Calc. Creatinine Clearance 57 mL/min (70-130); Calcium 7.4 mg/dL (7.8-10.44); Carbon Dioxide 18 mmol/L (23-31); Chloride 114 mmol/L (98-107); Estimated GFR-MDRD 72; Glucose 80 mg/dL (83-110); Potassium 3.2 mmol/L (3.5-5.1); Sodium 140 mmol/L (136-145)
[2018-05-18] MEDS: Vancomycin HCl 25 MG/ML Oral PO SCH ×4 (08:09→20:21)
[2018-05-18] MEDS: Apixaban 5 MG TAB PO SCH ×2 (08:10→20:21)
[2018-05-18] MEDS: Saccharomyces boulardii 250 MG CAP PO SCH (08:11)
[2018-05-18] MEDS: Famotidine 20 MG TAB PO SCH (08:11)
[2018-05-18] MEDS: Amlodipine 5 MG TAB PO SCH (08:11)
--- NOTE | 2018-05-18 10:53 | PDOC.PN ---
- Subjective Encounter Start Date: 05/18/18 Encounter Start Time: 09:25 Subjective: awake, does not have any complaints -: says she slept, per staff no further diarrhea from last night -: no nausea, tolerating oral diet - Objective MAR Reviewed: Yes Vital Signs & Weight: Vital Signs (12 hours) Temp Pulse Resp BP BP Pulse Ox 05/18/18 08:11 101 H 144/71 H 05/18/18 07:15 98.8 F 101 H 14 144/71 H 92 L Weight Admit Weight 122 lb 8 oz Weight 120 lb 14.4 oz I&O: 05/17/18 05/18/18 05/19/18 06:59 06:59 06:59 Intake Total 1080 3340 Output Total 2 Balance 1080 3338 Result Diagrams: 05/17/18 18:07 05/18/18 07:02 Phys Exam - Physical Examination HEENT: PERRLA, moist MMs Neck: no JVD, supple Respiratory: no wheezing, no rales Cardiovascular: RRR, no significant murmur Gastrointestinal: soft, non-tender, positive bowel sounds Musculoskeletal: no edema, pulses present Neurological: non-focal, moves all 4 limbs Dx/Plan (1) BILL (acute kidney injury) Code(s): N17.9 - ACUTE KIDNEY FAILURE, UNSPECIFIED Status: Resolved (2) CKD (chronic kidney disease) stage 3, GFR 30-59 ml/min Code(s): N18.3 - CHRONIC KIDNEY DISEASE, STAGE 3 (MODERATE) Status: Chronic (3) DVT (deep venous thrombosis) Code(s): I82.409 - ACUTE EMBOLISM AND THOMBOS UNSP DEEP VN UNSP LOWER EXTREMITY Status: Chronic Qualifiers: DVT location: lower extremity Chronicity: unspecified Laterality: right (4) Right atrial thrombus Code(s): [id number] - Status: Chronic (5) Metabolic acidosis Code(s): E87.2 - ACIDOSIS Status: Acute (6) Moderate dehydration Code(s): E86.0 - DEHYDRATION Status: Acute (7) Anemia, normocytic normochromic Code(s): D64.9 - ANEMIA, UNSPECIFIED Status: Chronic (8) Lupus (systemic lupus erythematosus) Code(s): M32.9 - SYSTEMIC LUPUS ERYTHEMATOSUS, UNSPECIFIED Status: Chronic Qualifiers: Systemic lupus erythematosus type: unspecified Comment: stable (9) C. difficile colitis Status: Suspected - Plan is on vanc po qid, repeat stool test -: d/w son and gave an update -: on asp, eliquis, norvasc and gentle iv hydration -: likely dc in am to snf if she remains diarrhea free * . Review of Systems - Medications/Allergies Allergies/Adverse Reactions: Allergies Allergy/AdvReac Type Severity Reaction Status Date / Time Sulfa (Sulfonamide Allergy Severe Verified 04/26/18 03:46 Antibiotics) promethazine Allergy Mild Verified 04/26/18 03:46 hydralazine Allergy Verified 04/26/18 03:46 Medications: Current Medications Acetaminophen (Tylenol) 650 mg PO Q4H PRN PRN Reason: Headache/Fever or Pain Last Admin: 05/17/18 09:42 Dose: 650 mg Amlodipine Besylate (Norvasc) 5 mg PO DAILY [facility] Last Admin: 05/18/18 08:11 Dose: 5 mg Apixaban (Eliquis) 5 mg PO BID [facility] Last Admin: 05/18/18 08:10 Dose: 5 mg Aspirin (Aspirin Chewable) 81 mg PO DAILY [facility] Last Admin: 05/18/18 08:11 Dose: 81 mg Famotidine (Pepcid) 20 mg PO DAILY [facility] Last Admin: 05/18/18 08:11 Dose: 20 mg Guaifenesin/Dextromethorphan (Robitussin Dm) 15 ml PO Q4H PRN PRN Reason: Cough Sodium Chloride (Normal Saline 0.9%) 1,000 mls @ 70 mls/hr IV .[id number] [facility] Last Admin: 05/17/18 21:26 Dose: 1,000 mls Melatonin (Melatonin) 3 mg PO [facility] Last Admin: 05/17/18 21:25 Dose: 3 mg Ondansetron HCl (Zofran) 4 mg IVP Q6H PRN PRN Reason: Nausea/Vomiting Pantoprazole Sodium (Protonix) 40 mg PO DAILY [facility] Last Admin: 05/18/18 08:10 Dose: 40 mg Quetiapine Fumarate (Seroquel) 25 mg PO HS [facility] Last Admin: 05/17/18 21:25 Dose: 25 mg Saccharomyces Boulardii (Florastor) 250 mg PO DAILY [facility] Last Admin: 05/18/18 08:11 Dose: 250 mg Vancomycin HCl (First Vancomycin) 125 mg PO QID [facility] Last Admin: 05/18/18 08:09 Dose: 125 mg
--- NOTE | 2018-05-18 11:16 | PRG ---
Patient Name: DEBBIE RANDOLPH Date of service: 05/18/2018 Subjective: Patient was seen and examined at bedside and overnight events noted. Patient denies any shortness of breath or chest pain or palpitation. No history of nausea or vomiting or diarrhea or fever or chills or cramps. Objective: General: This is an elderly female in no apparent distress. Vital signs: Temperature 98, pulse 101, respiratory rate 18, blood pressure 144/71. HEENT: Atraumatic, normocephalic. Oral mucosa is moist. Neck: Supple. Cardiovascular: S1 S2 heard. Rate and rhythm regular. Respiratory: Clear to auscultation. Gastrointestinal: Abdomen is soft. Musculoskeletal: No tenderness. No edema. Dermatologic: No skin rash. Neurologic: Alert and awake and oriented X3. No focal neurologic deficits. Moving all the extremit ies. Psychiatric: Mood and affect normal. LABORATORY DATA: Potassium is 3.2, BUN 11, creatinine 0.7. ASSESSMENT AND PLAN: 1. Acute kidney injury on chronic kidney disease, stage 2. Good improvement in renal function. Mario Alberto al function is close to baseline, creatinine is 0.7 today. 2. Hypokalemia. Recommend to replace and monitor magnesium and potassium. 3. Metabolic acidosis, better. 4. Hypertension. Monitor blood pressure. 5. Anemia, stable. I will sign off. Please call back with any questions. Creatinine is stable today. Avoid nephrotoxi ns, continue close monitoring of renal function while inpatient. Maintain adequate hydration.
[2018-05-18] MEDS: Sodium Chloride 0.9% 1,000 ML IV SCH ×2 (12:32→23:38)
[2018-05-18] MEDS: Acetaminophen 325 MG TAB PO PRN ×2 (16:28→20:21)
[2018-05-18] MEDS: Melatonin 3 MG TAB PO SCH (20:21)
[2018-05-19 09:18] LABS: #Eosinphils 0.1 thou/uL (0.0-0.7); #Lymphocytes 0.7 thou/uL (1.20-3.40); #Monocytes 0.4 thou/uL (0.11-0.59); #Neutrophils 7.3 thou/uL (1.40-6.50); %Basophils 0.5 % (0.0-1.0); %Eosinophils 1.6 % (0.0-10.0); %Lymphocytes 7.9 % (21.0-51.0); %Monocytes 5.1 % (0.0-10.0); Hemoglobin 9.6 g/dL (12.0-16.0); Mean Corpuscular HGB CONC 31.7 g/dL (32.0-36.0); Mean Corpuscular Volume 94.7 fL (78.0-98.0); Platelet Count 207 thou/uL (130-400); RBC Distribution Width 15.5 % (11.5-14.5); Red Blood Cell (RBC) Count 3.18 mill/uL (4.20-5.40); White Blood Cell (WBC) Count 8.6 thou/uL (4.8-10.8)
[2018-05-19 09:35] LABS: Anion Gap 10 mmol/L (10-20); BUN (Urea Nitrogen) 8 mg/dL (9.8-20.1); Calc. Creatinine Clearance 65 mL/min (70-130); Calcium 7.5 mg/dL (7.8-10.44); Carbon Dioxide 19 mmol/L (23-31); Chloride 115 mmol/L (98-107); Estimated GFR-MDRD 84; Glucose 81 mg/dL (83-110); Potassium 3.2 mmol/L (3.5-5.1); Sodium 141 mmol/L (136-145)
[2018-05-19] MEDS: Apixaban 5 MG TAB PO SCH ×2 (09:53→20:21)
[2018-05-19] MEDS: Famotidine 20 MG TAB PO SCH (09:53)
[2018-05-19] MEDS: Saccharomyces boulardii 250 MG CAP PO SCH (09:53)
[2018-05-19] MEDS: Amlodipine 5 MG TAB PO SCH (09:54)
[2018-05-19] MEDS: Vancomycin HCl 25 MG/ML Oral PO SCH ×4 (11:08→20:21)
[2018-05-19] MEDS: Acetaminophen 325 MG TAB PO PRN ×2 (11:09→20:22)
--- NOTE | 2018-05-19 12:41 | PDOC.PN ---
- Subjective Encounter Start Date: 05/19/18 Encounter Start Time: 11:15 Subjective: 2 bm's overnight, none this am -: no abd pain or nausea -: is tolerating oral diet - Objective MAR Reviewed: Yes Vital Signs & Weight: Vital Signs (12 hours) Temp Pulse Resp BP BP BP Pulse Ox 05/19/18 11:27 98.3 F 102 H 16 130/71 05/19/18 10:09 97.7 F 96 16 96 05/19/18 09:54 96 128/57 L 05/19/18 07:38 97.7 F 96 16 136/70 96 05/19/18 03:43 98.1 F 93 16 128/57 L 100 Weight Admit Weight 122 lb 8 oz Weight 120 lb 14.4 oz I&O: 05/18/18 05/19/18 05/20/18 06:59 06:59 06:59 Intake Total 3340 3370 Output Total 2 Balance 3338 3370 Result Diagrams: 05/19/18 08:55 05/19/18 08:55 Phys Exam - Physical Examination HEENT: PERRLA, moist MMs Neck: no JVD, supple Respiratory: no wheezing, no rales Cardiovascular: RRR, no significant murmur Gastrointestinal: soft, non-tender, positive bowel sounds Musculoskeletal: no edema, pulses present Neurological: non-focal, moves all 4 limbs Psychiatric: normal affect, A&O x 3 Dx/Plan (1) BILL (acute kidney injury) Code(s): N17.9 - ACUTE KIDNEY FAILURE, UNSPECIFIED Status: Resolved (2) CKD (chronic kidney disease) stage 3, GFR 30-59 ml/min Code(s): N18.3 - CHRONIC KIDNEY DISEASE, STAGE 3 (MODERATE) Status: Chronic (3) DVT (deep venous thrombosis) Code(s): I82.409 - ACUTE EMBOLISM AND THOMBOS UNSP DEEP VN UNSP LOWER EXTREMITY Status: Chronic Qualifiers: DVT location: lower extremity Chronicity: unspecified Laterality: right (4) Right atrial thrombus Code(s): [id number] - Status: Chronic (5) Metabolic acidosis Code(s): E87.2 - ACIDOSIS Status: Acute (6) Moderate dehydration Code(s): E86.0 - DEHYDRATION Status: Acute (7) Anemia, normocytic normochromic Code(s): D64.9 - ANEMIA, UNSPECIFIED Status: Chronic (8) Lupus (systemic lupus erythematosus) Code(s): M32.9 - SYSTEMIC LUPUS ERYTHEMATOSUS, UNSPECIFIED Status: Chronic Qualifiers: Systemic lupus erythematosus type: unspecified Comment: stable (9) C. difficile colitis Status: Suspected - Plan send another sample for c.diff, clinically got better with vanc -: had nearly 10 episodes of watery diarrhea on 05/17/2018, multiple hosp/snf -: may dc in am to snf if stable in am, paper work for dc in chart -: continue asp, eliquis, norvasc and oral vanc -: d/w at bedside * . Review of Systems - Medications/Allergies Allergies/Adverse Reactions: Allergies Allergy/AdvReac Type Severity Reaction Status Date / Time Sulfa (Sulfonamide Allergy Severe Verified 04/26/18 03:46 Antibiotics) promethazine Allergy Mild Verified 04/26/18 03:46 hydralazine Allergy Verified 04/26/18 03:46 Medications: Current Medications Acetaminophen (Tylenol) 650 mg PO Q4H PRN PRN Reason: Headache/Fever or Pain Last Admin: 05/19/18 11:09 Dose: 650 mg Amlodipine Besylate (Norvasc) 5 mg PO DAILY [facility] Last Admin: 05/19/18 09:54 Dose: 5 mg Apixaban (Eliquis) 5 mg PO BID [facility] Last Admin: 05/19/18 09:53 Dose: 5 mg Aspirin (Aspirin Chewable) 81 mg PO DAILY [facility] Last Admin: 05/19/18 09:53 Dose: 81 mg Famotidine (Pepcid) 20 mg PO DAILY [facility] Last Admin: 05/19/18 09:53 Dose: 20 mg Guaifenesin/Dextromethorphan (Robitussin Dm) 15 ml PO Q4H PRN PRN Reason: Cough Sodium Chloride (Normal Saline 0.9%) 1,000 mls @ 70 mls/hr IV .[id number] [facility] Last Admin: 05/18/18 23:38 Dose: 1,000 mls Melatonin (Melatonin) 3 mg PO HS [facility] Last Admin: 05/18/18 20:21 Dose: 3 mg Ondansetron HCl (Zofran) 4 mg IVP Q6H PRN PRN Reason: Nausea/Vomiting Pantoprazole Sodium (Protonix) 40 mg PO DAILY [facility] Last Admin: 05/19/18 09:53 Dose: 40 mg Quetiapine Fumarate (Seroquel) 25 mg PO HS [facility] Last Admin: 05/18/18 20:21 Dose: 25 mg Saccharomyces Boulardii (Florastor) 250 mg PO DAILY [facility] Last Admin: 05/19/18 09:53 Dose: 250 mg Vancomycin HCl (First Vancomycin) 125 mg PO QID [facility] Last Admin: 05/19/18 11:08 Dose: 125 mg
[2018-05-19 18:10] LABS: Hemoglobin 9.9 g/dL (12.0-16.0); Platelet Count 236 thou/uL (130-400)
[2018-05-19] MEDS: Melatonin 3 MG TAB PO SCH (20:21)
[2018-05-19] MEDS: Sodium Chloride 0.9% 1,000 ML IV SCH (20:22)
[2018-05-20 06:05] LABS: Anion Gap 9 mmol/L (10-20); BUN (Urea Nitrogen) 8 mg/dL (9.8-20.1); Calc. Creatinine Clearance 65 mL/min (70-130); Calcium 7.4 mg/dL (7.8-10.44); Carbon Dioxide 20 mmol/L (23-31); Chloride 115 mmol/L (98-107); Estimated GFR-MDRD 84; Glucose 85 mg/dL (83-110); Sodium 141 mmol/L (136-145)
[2018-05-20 06:08] LABS: Potassium 2.9 mmol/L (3.5-5.1)
[2018-05-20] MEDS ORDERED: Potassium Chloride 20 MEQ TAB PO SCH (06:45)
[2018-05-20] MEDS: Apixaban 5 MG TAB PO SCH ×2 (09:20→20:11)
[2018-05-20] MEDS: Sodium Chloride 0.9% 1,000 ML IV SCH ×2 (09:20→20:30)
[2018-05-20] MEDS: Saccharomyces boulardii 250 MG CAP PO SCH (09:20)
[2018-05-20] MEDS: Potassium Chloride 20 MEQ TAB PO SCH ×3 (09:21→20:12)
[2018-05-20] MEDS: Amlodipine 5 MG TAB PO SCH (09:21)
[2018-05-20] MEDS: Famotidine 20 MG TAB PO SCH (09:21)
[2018-05-20] MEDS: Vancomycin HCl 25 MG/ML Oral PO SCH ×4 (09:32→20:22)
[2018-05-20] MEDS ORDERED: Colchicine 0.6 MG TAB PO SCH (10:00)
--- NOTE | 2018-05-20 10:50 | PQF ---
CLINICAL DOCUMENTATION IMPROVEMENT CLARIFICATION FORM: ICD-10 Updated PLEASE DO AN ADDENDUM TO THE PROGRESS NOTE WITH ANY DOCUMENTATION UPDATES OR ADDITIONS AND CARRY THROUGH TO DC SUMMARY. THANK YOU. DATE: 05/20/18 ATTN: Dr. Webster Please exercise your independent, professional judgment in responding to the clarification form. Clinical indicators are provided on the bottom of this form for your review Diagnosis: C. DIFFICILE COLITIS. SUSPECTED [ ] C. Difficile Colitis ruled IN [ X ] C. Difficile Colitis ruled OUT [ ] Diarrhea [ ] Other diagnosis [ ] Unable to determine Present on admission Yes [ ] No [ ] CLINICAL INDICATORS - SIGNS / SYMPTOMS / LABS H&P 7: SHE ALSO HAS HAD DIARRHEA NEARLY 4-5 TIMES PER DAY & IS WATERY IN NATURE. PN 7/8: PER STAFF HAD 3 EPISODES OF DIARRHEA FROM THIS AM & 4 LAST NIGHT, WATERY. C. DIFFICILE COLITIS. SUSPECTED PN 05/19: SEND ANOTHER SAMPLE FOR C.DIFF, CLINICALLY GOT BETTER W/ VANC. RISKS: H&P 7/: MULTIPLE HOSPITALIZATIONS IN THE LAST 8 WEEKS, DIARRHEA FOR FURTHER EVALUATION. PN 7/: HAD -VE STOOL TEST FOR C. DIFF AT [facility] LAST MONTH, IS +VE FOR AG NOW BUT -VE FOR TOXIN BY PCR. TREATMENT: PN 7: WILL EMPIRICALLY TREAT FOR C. DIFF FOR NOW TO SEE RESPONSE. ORDER 05/17: VANCOMYCIN HCL 125 MG PO QID Thank you, Klyee (This form is maintained as a part of the permanent medical record) 2014 [email or web address]. All Rights Reserved Kylee Ascencio RN, BSN [email or web address] Office: [phone] [facility]
[2018-05-20] MEDS ORDERED: Loperamide HCl 2 MG CAP PO PRN (11:24)
[2018-05-20] MEDS ORDERED: Loperamide HCl 2 MG CAP PO SCH (11:30)
--- NOTE | 2018-05-20 17:06 | PDOC.PN ---
- Subjective Encounter Start Date: 05/20/18 Encounter Start Time: 08:20 Pt seen for followup re: diarrhea. Reports ongoing loose stools. Denies fevers or chills. No nausea or vomiting. - Objective MAR Reviewed: Yes Vital Signs & Weight: Vital Signs (12 hours) Temp Pulse Resp BP BP Pulse Ox 05/20/18 16:22 99.4 F 93 18 142/64 H 98 05/20/18 12:02 98.5 F 96 16 138/75 94 L 05/20/18 09:21 95 152/78 H 05/20/18 08:00 98.6 F 95 16 97 05/20/18 07:44 98.6 F 95 16 152/78 H 97 Weight Admit Weight 122 lb 8 oz Weight 120 lb 14.4 oz I&O: 05/19/18 05/20/18 05/21/18 06:59 06:59 06:59 Intake Total 3370 1080 Balance 3370 1080 Result Diagrams: 05/19/18 17:58 05/20/18 05:08 Phys Exam - Physical Examination Constitutional: NAD HEENT: moist MMs Neck: supple Respiratory: clear to auscultation bilateral Cardiovascular: RRR Gastrointestinal: soft Neurological: moves all 4 limbs Psychiatric: normal affect Skin: no rash Deviation from normal: Yo 1st MTP erythema, tenderness Dx/Plan (1) Diarrhea Code(s): R19.7 - DIARRHEA, UNSPECIFIED Status: Acute Comment: C. diff negative, start Imodium (2) Gout flare Code(s): M10.9 - GOUT, UNSPECIFIED Status: Acute Comment: start colchicine (3) Hypokalemia Code(s): E87.6 - HYPOKALEMIA Status: Acute Comment: replace potassium, recheck (4) Lupus (systemic lupus erythematosus) Code(s): M32.9 - SYSTEMIC LUPUS ERYTHEMATOSUS, UNSPECIFIED Status: Chronic Qualifiers: Systemic lupus erythematosus type: unspecified Comment: stable (5) Thrombus of right atrial appendage Code(s): [id number] - Status: Suspected Comment: continue anticoagulation - Plan * . Review of Systems - Review of Systems Constitutional: negative: fever, chills, sweats, weakness, malaise Gastrointestinal: Diarrhea. negative: Nausea, Vomiting, Abdominal Pain, Constipation, Melena, Hematochezia Genitourinary: negative: Dysuria, Frequency, Incontinence, Hematuria, Retention - Medications/Allergies Allergies/Adverse Reactions: Allergies Allergy/AdvReac Type Severity Reaction Status Date / Time Sulfa (Sulfonamide Allergy Severe Verified 04/26/18 03:46 Antibiotics) promethazine Allergy Mild Verified 04/26/18 03:46 hydralazine Allergy Verified 04/26/18 03:46 Medications: Current Medications Acetaminophen (Tylenol) 650 mg PO Q4H PRN PRN Reason: Headache/Fever or Pain Last Admin: 05/19/18 20:22 Dose: 650 mg Amlodipine Besylate (Norvasc) 5 mg PO DAILY [facility] Last Admin: 05/20/18 09:21 Dose: 5 mg Apixaban (Eliquis) 5 mg PO BID [facility] Last Admin: 05/20/18 09:20 Dose: 5 mg Aspirin (Aspirin Chewable) 81 mg PO DAILY [facility] Last Admin: 05/20/18 09:21 Dose: 81 mg Famotidine (Pepcid) 20 mg PO DAILY [facility] Last Admin: 05/20/18 09:21 Dose: 20 mg Guaifenesin/Dextromethorphan (Robitussin Dm) 15 ml PO Q4H PRN PRN Reason: Cough Sodium Chloride (Normal Saline 0.9%) 1,000 mls @ 70 mls/hr IV .[id number] [facility] Last Admin: 05/20/18 09:20 Dose: Not Given Loperamide HCl (Imodium) 2 mg PO PRN PRN PRN Reason: Diarrhea/Loose Stools Melatonin (Melatonin) 3 mg PO [facility] Last Admin: 05/19/18 20:21 Dose: 3 mg Ondansetron HCl (Zofran) 4 mg IVP Q6H PRN PRN Reason: Nausea/Vomiting Pantoprazole Sodium (Protonix) 40 mg PO DAILY [facility] Last Admin: 05/20/18 09:20 Dose: 40 mg Potassium Chloride (K-Dur) 40 meq PO TID [facility] Last Admin: 05/20/18 15:30 Dose: 40 meq Quetiapine Fumarate (Seroquel) 25 mg PO HS [facility] Last Admin: 05/19/18 20:21 Dose: 25 mg Saccharomyces Boulardii (Florastor) 250 mg PO DAILY [facility] Last Admin: 05/20/18 09:20 Dose: 250 mg Sodium Chloride (Flush - Normal Saline) 10 ml IVF Q12HR [facility] Last Admin: 05/20/18 09:21 Dose: Not Given Sodium Chloride (Flush - Normal Saline) 10 ml IVF PRN PRN PRN Reason: Saline Flush Vancomycin HCl (First Vancomycin) 125 mg PO QID [facility] Last Admin: 05/20/18 16:20 Dose: 125 mg
[2018-05-20] MEDS: Acetaminophen 325 MG TAB PO PRN (20:12)
[2018-05-20] MEDS: Melatonin 3 MG TAB PO SCH (20:21)
--- NOTE | 2018-05-20 21:31 | RAD ---
FRONTAL RADIOGRAPH CHEST: 05/20/18 COMPARISON: 05/15/18 HISTORY: Fever. FINDINGS: There is dense opacity in the left base with obscuration of the left hemidiaphragm, evidence of left lower lobe consolidation/collapse. There is no pneumothorax seen. There is small/moderate bilateral p leural effusions. Pleural and parenchymal opacities have worsened since the prior exam. IMPRESSION: Bilateral pleural effusions with left basilar consolidation/collapse. Findings suggest infectious pne umonitis and/or pulmonary edema. Followup imaging following treatment to document resolution advised. POS: MILI
[2018-05-21 01:20] LABS: Bilirubin Negative (Negative); Blood, Urine Small (Negative); Clarity TURBID (Clear); Glucose, Urine (Dipstick) Negative (Negative); Leukocyte Large (Negative); Nitrite Negative (Negative); Protein, Urine (Dipstick) Negative (Neg-Trace); Specific Gravity, Urine 1.009 (1.002-1.036); Urobilinogen 0.2 mg/dL (0.2-1.0); pH, Urine 5.5 (5.0-9.0)
[2018-05-21 01:22] LABS: Bacteria/HPF Rare-Few HPF (None Seen); Squamous Epithelial 0-3 HPF (0-3)
[2018-05-21 01:31] LABS: Pathc Cast-AUWi Flag 13.22 (0-2.49); Yeast-AUWi Flag 558.8 (0-25.0)
[2018-05-21 01:40] LABS: Hyaline Casts/LPF 0-3 HYALINE CAST LPF (0-3 Hyaline); Other Casts/LPF None Seen LPF (0-3 Hyaline); RBC/HPF 0-3 HPF (0-3)
[2018-05-21 01:41] LABS: Yeast-All Forms 4+ HPF (None Seen)
[2018-05-21 04:13] LABS: #Basophils 0.1 thou/uL (0.0-0.2); #Eosinphils 0.1 thou/uL (0.0-0.7); #Lymphocytes 1.4 thou/uL (1.20-3.40); #Monocytes 0.7 thou/uL (0.11-0.59); #Neutrophils 7.8 thou/uL (1.40-6.50); %Basophils 0.6 % (0.0-1.0); %Eosinophils 1.5 % (0.0-10.0); %Lymphocytes 13.9 % (21.0-51.0); %Monocytes 6.7 % (0.0-10.0); %Neutrophils 77.4 % (42.0-75.0); Hemoglobin 9.5 g/dL (12.0-16.0); Mean Corpuscular HGB CONC 32.1 g/dL (32.0-36.0); Mean Corpuscular Volume 93.4 fL (78.0-98.0); Mean Platelet Volume 8.5 fL (7.4-10.4); Platelet Count 219 thou/uL (130-400); RBC Distribution Width 15.6 % (11.5-14.5); Red Blood Cell (RBC) Count 3.16 mill/uL (4.20-5.40)
[2018-05-21 04:33] LABS: Anion Gap 14 mmol/L (10-20); BUN (Urea Nitrogen) 5 mg/dL (9.8-20.1); Calc. Creatinine Clearance 67 mL/min (70-130); Calcium 7.6 mg/dL (7.8-10.44); Carbon Dioxide 11 mmol/L (23-31); Chloride 121 mmol/L (98-107); Estimated GFR-MDRD 87; Glucose 80 mg/dL (83-110); Potassium 6.9 mmol/L (3.5-5.1); Sodium 139 mmol/L (136-145)
[2018-05-21] MEDS ORDERED: Furosemide 40 MG/4 ML VIAL SLOW IVP SCH (07:45)
[2018-05-21 08:41] LABS: Calcium 7.8 mg/dL (7.8-10.44); Chloride 117 mmol/L (98-107); Potassium 5.1 mmol/L (3.5-5.1); Sodium 140 mmol/L (136-145)
[2018-05-21 08:42] LABS: Glucose 87 mg/dL (83-110)
[2018-05-21 08:43] LABS: Anion Gap 10 mmol/L (10-20); Carbon Dioxide 18 mmol/L (23-31)
[2018-05-21 08:45] LABS: Calc. Creatinine Clearance 70 mL/min (70-130); Estimated GFR-MDRD Greater than 90
[2018-05-21 08:46] LABS: BUN (Urea Nitrogen) 5 mg/dL (9.8-20.1)
[2018-05-21] MEDS: Vancomycin HCl 25 MG/ML Oral PO SCH ×4 (08:46→20:58)
[2018-05-21] MEDS: Sodium Chloride 0.9% 1,000 ML IV SCH (08:46)
[2018-05-21] MEDS: Amlodipine 5 MG TAB PO SCH (08:47)
[2018-05-21] MEDS: Saccharomyces boulardii 250 MG CAP PO SCH (08:47)
[2018-05-21] MEDS: Apixaban 5 MG TAB PO SCH ×2 (08:47→20:58)
[2018-05-21] MEDS: Famotidine 20 MG TAB PO SCH (08:47)
--- NOTE | 2018-05-21 14:10 | PQF ---
CLINICAL DOCUMENTATION IMPROVEMENT CLARIFICATION FORM: ICD-10 Updated PLEASE DO AN ADDENDUM TO THE PROGRESS NOTE WITH ANY DOCUMENTATION UPDATES OR ADDITIONS AND CARRY THROUGH TO DC SUMMARY. THANK YOU. DATE: 05/21/18 ATTN: Dr. Webster Please exercise your independent, professional judgment in responding to the clarification form. Clinical indicators are provided on the bottom of this form for your review Please check appropriate box(s) to clarify if the following diagnosis has been ruled in or ruled out: POSSIBLE UTI (H&P) . [ ] Ruled in diagnosis [ ] Continue to treat [ ] Resolved [ ] Ruled out diagnosis [ ] Cannot rule out diagnosis [ X ] Other diagnosis ___Yeast UTI, no need to treat [ ] Unable to determine In addition, please specify: Present on Admission (POA): [ ] Yes [ ] No [ ] Unable to determine For continuity of documentation, please document condition throughout progress notes and discharge summary. Thank You. CLINICAL INDICATORS - SIGNS / SYMPTOMS / LABS H&P 05/15: POSSIBLE UTI UA SHOWS MODERATE LEUKOCYTE ESTERASE, NITRITE POSITIVE, 21-50 WBCS, 2+ BACTERIA MICROBIOLOGY: URINE CULTURE 05/15: STRAIGHT CATHETER. YEAST SPECIES. LAB: URINALYSIS 05/20: LARGE LEUKOCYTE ESTERASE; GREATER THAN 50 WBC RISKS: H&P 05/15: CHRONIC HX OF LUPUS W/ HER BEING ON PREDNISONE 10 MG FOR MORE THAN 10 YRS. MULTIPLE HOSPITALIZATIONS IN THE LAST 8 WEEKS. TREATMENT: ORDER 05/15: URINE CULTURE. URINE STRAIGHT CATHETER. ORDER 05/20: URINALYSIS W/ REFLEX MICROSCOPIC EXAMINATION. ORDER 05/20: URINE CULTURE/ URINE STRAIGHT CATHETER (This form is maintained as a part of the permanent medical record) 2014 [employer]. All Rights Reserved Kylee Ascencio RN, BSN [email or web address] Office: [phone] [place]
--- NOTE | 2018-05-21 15:13 | PDOC.PN ---
- Subjective Encounter Start Date: 05/21/18 Encounter Start Time: 11:00 Pt seen for followup re: diarrhea. Denies chest pain, shortness of breath, fevers or chills. c/o diarrhea. - Objective MAR Reviewed: Yes Vital Signs & Weight: Vital Signs (12 hours) Temp Pulse Resp BP BP Pulse Ox 05/21/18 11:37 97.5 F L 104 H 20 153/79 H 100 05/21/18 08:00 98.1 F 113 H 20 144/71 H 100 05/21/18 04:30 98.9 F 102 H 20 148/73 H 97 Weight Admit Weight 122 lb 8 oz Weight 120 lb 14.4 oz I&O: 05/20/18 05/21/18 05/22/18 06:59 06:59 06:59 Intake Total 1080 2340 2340 Balance 1080 2340 2340 Result Diagrams: 05/21/18 03:37 05/21/18 08:07 Additional Labs: Labs reviewed by me Phys Exam - Physical Examination Constitutional: NAD HEENT: moist MMs Neck: supple Respiratory: clear to auscultation bilateral Cardiovascular: RRR Gastrointestinal: soft Neurological: moves all 4 limbs Psychiatric: normal affect, A&O x 3 Dx/Plan (1) Diarrhea Code(s): R19.7 - DIARRHEA, UNSPECIFIED Status: Acute Comment: Pt had diarrhea yesterday evening, got one dose of Imodium (2) UTI (urinary tract infection) Status: Acute Comment: UTI with Yeast, no need to treat (3) Lupus (systemic lupus erythematosus) Code(s): M32.9 - SYSTEMIC LUPUS ERYTHEMATOSUS, UNSPECIFIED Status: Chronic Qualifiers: Systemic lupus erythematosus type: unspecified Comment: stable (4) Thrombus of right atrial appendage Code(s): [id number] - Status: Suspected Comment: on anticoagulation (5) Gout flare Code(s): M10.9 - GOUT, UNSPECIFIED Status: Resolved (6) Hypokalemia Code(s): E87.6 - HYPOKALEMIA Status: Resolved - Plan * . Review of Systems - Review of Systems Cardiovascular: negative: chest pain, palpitations, orthopnea, paroxysmal nocturnal dyspnea, edema, light headedness Gastrointestinal: Diarrhea. negative: Nausea, Vomiting, Abdominal Pain, Constipation, Melena, Hematochezia - Medications/Allergies Allergies/Adverse Reactions: Allergies Allergy/AdvReac Type Severity Reaction Status Date / Time Sulfa (Sulfonamide Allergy Severe Verified 04/26/18 03:46 Antibiotics) promethazine Allergy Mild Verified 04/26/18 03:46 hydralazine Allergy Verified 04/26/18 03:46 Medications: Current Medications Acetaminophen (Tylenol) 650 mg PO Q4H PRN PRN Reason: Headache/Fever or Pain Last Admin: 05/20/18 20:12 Dose: 650 mg Amlodipine Besylate (Norvasc) 5 mg PO DAILY [facility] Last Admin: 05/21/18 08:47 Dose: 5 mg Apixaban (Eliquis) 5 mg PO BID [facility] Last Admin: 05/21/18 08:47 Dose: 5 mg Aspirin (Aspirin Chewable) 81 mg PO DAILY [facility] Last Admin: 05/21/18 08:47 Dose: 81 mg Famotidine (Pepcid) 20 mg PO DAILY [facility] Last Admin: 05/21/18 08:47 Dose: 20 mg Guaifenesin/Dextromethorphan (Robitussin Dm) 15 ml PO Q4H PRN PRN Reason: Cough Sodium Chloride (Normal Saline 0.9%) 1,000 mls @ 70 mls/hr IV .[id number] [facility] Last Admin: 05/21/18 08:46 Dose: 1,000 mls Loperamide HCl (Imodium) 2 mg PO PRN PRN PRN Reason: Diarrhea/Loose Stools Last Admin: 05/20/18 20:52 Dose: 2 mg Melatonin (Melatonin) 3 mg PO HS [facility] Last Admin: 05/20/18 20:21 Dose: 3 mg Ondansetron HCl (Zofran) 4 mg IVP Q6H PRN PRN Reason: Nausea/Vomiting Pantoprazole Sodium (Protonix) 40 mg PO DAILY [facility] Last Admin: 05/21/18 08:46 Dose: 40 mg Quetiapine Fumarate (Seroquel) 25 mg PO HS [facility] Last Admin: 05/20/18 20:12 Dose: 25 mg Saccharomyces Boulardii (Florastor) 250 mg PO DAILY [facility] Last Admin: 05/21/18 08:47 Dose: 250 mg Sodium Chloride (Flush - Normal Saline) 10 ml IVF Q12HR [facility] Last Admin: 05/21/18 08:47 Dose: 10 ml Sodium Chloride (Flush - Normal Saline) 10 ml IVF PRN PRN PRN Reason: Saline Flush Vancomycin HCl (First Vancomycin) 125 mg PO QID [facility] Last Admin: 05/21/18 13:34 Dose: 125 mg
[2018-05-21] MEDS: Acetaminophen 325 MG TAB PO PRN (16:46)
[2018-05-21 17:47] LABS: Hemoglobin 9.1 g/dL (12.0-16.0); Platelet Count 265 thou/uL (130-400)
[2018-05-21] MEDS: Melatonin 3 MG TAB PO SCH (20:57)
[2018-05-22] MEDS: Sodium Chloride 0.9% 1,000 ML IV SCH (00:33)
[2018-05-22 05:26] LABS: #Eosinphils 0.2 thou/uL (0.0-0.7); #Lymphocytes 0.7 thou/uL (1.20-3.40); #Monocytes 0.3 thou/uL (0.11-0.59); #Neutrophils 5.7 thou/uL (1.40-6.50); %Basophils 0.5 % (0.0-1.0); %Eosinophils 2.3 % (0.0-10.0); %Lymphocytes 9.5 % (21.0-51.0); %Monocytes 4.6 % (0.0-10.0); %Neutrophils 83.1 % (42.0-75.0); Hemoglobin 8.9 g/dL (12.0-16.0); Mean Corpuscular HGB CONC 32.2 g/dL (32.0-36.0); Mean Corpuscular Hemoglobin 30.3 pg (27.0-31.0); Mean Platelet Volume 7.5 fL (7.4-10.4); Platelet Count 255 thou/uL (130-400); RBC Distribution Width 15.5 % (11.5-14.5); Red Blood Cell (RBC) Count 2.94 mill/uL (4.20-5.40); White Blood Cell (WBC) Count 6.9 thou/uL (4.8-10.8)
[2018-05-22] MEDS: Amlodipine 5 MG TAB PO SCH (08:20)
[2018-05-22] MEDS: Famotidine 20 MG TAB PO SCH (08:21)
[2018-05-22] MEDS: Saccharomyces boulardii 250 MG CAP PO SCH (08:21)
[2018-05-22] MEDS: Apixaban 5 MG TAB PO SCH (08:21)
[2018-05-22] MEDS: Vancomycin HCl 25 MG/ML Oral PO SCH (08:25)
[2018-05-22 08:40] VITALS: BP 146/81; TEMP 98.8
[2018-05-22 08:54] LABS: Anion Gap 11 mmol/L (10-20); BUN (Urea Nitrogen) 4 mg/dL (9.8-20.1); Calc. Creatinine Clearance 67 mL/min (70-130); Calcium 7.8 mg/dL (7.8-10.44); Carbon Dioxide 20 mmol/L (23-31); Chloride 113 mmol/L (98-107); Estimated GFR-MDRD 87; Glucose 77 mg/dL (83-110); Potassium 4.2 mmol/L (3.5-5.1); Sodium 140 mmol/L (136-145)
--- NOTE | 2018-05-22 13:28 | DIS ---
PRIMARY CARE PHYSICIAN: Dr. Jarocho Thomas DATE OF ADMISSION: 05/15/2018 DATE OF DISCHARGE: 05/22/2018 ADMITTING DIAGNOSES: 1. Acute kidney injury. 2. Urinary tract infection with yeast species. 3. Diarrhea. CONDITION OF PATIENT ON THE DAY OF DISCHARGE: Stable. I assessed Ms. Zamarripa on the day of discharge . She denies any chest pain or shortness of breath. Vital signs are stable. S1 and S2 are heard, r egular. Lungs are clear to auscultation bilaterally. DISCHARGE MEDICATIONS: Digoxin was discontinued. Otherwise, her discharge medications remained the same as preadmission home medications as dictated by Dr. Chávez on 05/15/2018. HOSPITAL COURSE: Ms. Zamarripa is a pleasant 72-year-old lady who was admitted to [facility] for dehydration and suspected urinary tract infection as well as acute kidney injury. S he was seen by Nephrology Service. Digoxin was stopped because of digoxin toxicity. She improved wi th intravenous fluids. Her acute renal failure, resolved. At the time of admission, she also had diarrhea. Clostridium difficile tests were antigen positive f or toxin, but toxigenic Clostridium difficile was not detected by PCR. She was started on empiric va ncomycin. She had repeat Clostridium difficile testing done, which was negative for both antigen and toxin, on the sample collected on 05/19/2018. Vancomycin is being discontinued. Urine cultures grew yeast species. This was not treated. She also had episodes of delirium during this hospitalization. On the day of discharge, she has sodium 140, potassium 4.2, creatinine 0.67, white count 6900, hemogl obin 8.9, and platelet count 255,000. She is being discharged to [facility], from where she was admitted to this hospital. CONSULTATIONS DURING THIS HOSPITALIZATION: Nephrology, Dr. Riojas. Many thanks for allowing me to participate in your patient's care. Please feel free to contact me wi th any questions or concerns. DISCHARGE DESTINATION: [facility]. TOTAL AMOUNT OF TIME SPENT COORDINATING THIS DISCHARGE: 33 minutes.
== END 2018-05-22 13:46 | DRG 683 ==
LOC: ERS 09:30 → 2NO 14:46 → T4-A 05-16 12:54
PROVIDERS: ADMIT Internal Medicine; ATTEND Internal Medicine
DX: N17.9 Acute kidney failure, unspecified (principal); N39.0 Urinary tract infection, site not specified; B37.89 Other sites of candidiasis; E87.2 Acidosis; I82.501 Chronic embolism and thrombosis of unspecified deep veins of right lower extremity; N18.4 Chronic kidney disease, stage 4 (severe); R19.7 Diarrhea, unspecified; E86.0 Dehydration; T46.0X5A Adverse effect of cardiac-stimulant glycosides and drugs of similar action, initial encounter; R41.0 Disorientation, unspecified; M32.9 Systemic lupus erythematosus, unspecified; M10.9 Gout, unspecified; E87.6 Hypokalemia; D64.9 Anemia, unspecified; I12.9 Hypertensive chronic kidney disease with stage 1 through stage 4 chronic kidney disease, or unspecified chronic kidney disease; I34.0 Nonrheumatic mitral (valve) insufficiency; Z96.651 Presence of right artificial knee joint; R62.7 Adult failure to thrive; Y92.9 Unspecified place or not applicable; Z79.01 Long term (current) use of anticoagulants; Z80.1 Family history of malignant neoplasm of trachea, bronchus and lung
CPT/HCPCS: 36415; 51701; 71045; 80048; 80162; 81003; 81015; 82550; 82553; 82565; 83605; 83690; 83880; 84484; 85014; 85018; 85025; 85049; 86160; 86225; 87040; 87045; 87046; 87086; 87324; 87449; 87493; 87899; 93005; 93970; 96361; 96365; A4216; A4353; G8978-GP-CL; G8979-GP-CI; J0696; J1940; J3370

== ENCOUNTER 2018-06-03 14:01 | Emergency (ER) | payer MEDICARE, BC ==
[2018-06-03 15:09] LABS: Hemoglobin 11.6 g/dL (12.0-16.0); Mean Corpuscular HGB CONC 32.4 g/dL (32.0-36.0); Mean Corpuscular Hemoglobin 29.7 pg (27.0-31.0); Mean Corpuscular Volume 91.7 fL (78.0-98.0); Mean Platelet Volume 7.3 fL (7.4-10.4); Platelet Count 436 thou/uL (130-400); RBC Distribution Width 15.8 % (11.5-14.5); Red Blood Cell (RBC) Count 3.91 mill/uL (4.20-5.40); White Blood Cell (WBC) Count 11.8 thou/uL (4.8-10.8)
[2018-06-03 15:23] LABS: Anisocytosis SLIGHT = 6-15 cells (100X) (0-5/hpf); Band 5 % (5-11); Lymphocytes 5 % (21-51); MDiff Complete? YES; Monocytes 2 % (0-10); Neutrophil 88 % (42-75); PLT Morphology Comment Appears Increased; Polychromasia SLIGHT = 2-3 cells (100X) (0-2/hpf)
[2018-06-03 15:29] LABS: ALT (SGPT) 14 U/L (8-55); AST (SGOT) 27 U/L (5-34); Albumin 3.5 g/dL (3.4-4.8); Alkaline Phosphatase 80 U/L (40-150); Anion Gap 15 mmol/L (10-20); BUN (Urea Nitrogen) 22 mg/dL (9.8-20.1); Bilirubin, Total 0.5 mg/dL (0.2-1.2); Calc. Creatinine Clearance 0 mL/min (70-130); Calcium 8.4 mg/dL (7.8-10.44); Carbon Dioxide 27 mmol/L (23-31); Chloride 102 mmol/L (98-107); Estimated GFR-MDRD 37; Globulin 3.5 g/dL (2.4-3.5); Glucose 150 mg/dL (83-110); Phosphorus 2.9 mg/dL (2.3-4.7); Potassium 4.4 mmol/L (3.5-5.1); Sodium 140 mmol/L (136-145)
[2018-06-03 15:34] LABS: Magnesium 0.9 mg/dL (1.6-2.6)
[2018-06-03] MEDS ORDERED: Magnesium 2 GM/NS 0.9% 100 ML 2 GM in Premix Bag 1 BAG IVPB SCH (15:45)
== END 2018-06-03 17:14 | disposition home or self-care (01) ==
LOC: ERS 14:01
DX: E83.42 Hypomagnesemia (principal); I48.91 Unspecified atrial fibrillation; N18.4 Chronic kidney disease, stage 4 (severe); I25.2 Old myocardial infarction; I13.0 Hypertensive heart and chronic kidney disease with heart failure and stage 1 through stage 4 chronic kidney disease, or unspecified chronic kidney disease; I50.9 Heart failure, unspecified; Z79.899 Other long term (current) drug therapy
CPT/HCPCS: 83735; 84100; 85025; 96365; J3475